=== PATIENT | male | born 1960 | race Caucasian/White ===

== ENCOUNTER 2017-06-12 10:45 | Emergency (ER) | payer SELFPAY ==
[2017-06-12 10:51] VITALS: BMI 28.1
[2017-06-12] MEDS ORDERED: NS 1000 ML 1,000 ML ONE (10:54)
[2017-06-12] MEDS ORDERED: NS 1000 ML 1,000 ML IV ONE (10:58)
[2017-06-12] MEDS ORDERED: ATIVAN INJ 2 MG VIAL IVP STA (10:58)
[2017-06-12] MEDS ORDERED: TORADOL 30 MG VIAL IVP STA (10:58)
[2017-06-12] MEDS ORDERED: ATIVAN INJ 2 MG VIAL ONE (10:59)
[2017-06-12] MEDS ORDERED: TORADOL 30 MG VIAL ONE (10:59)
--- NOTE | 2017-06-12 11:05 | DR.MBACK ---
HPI - Time Seen Time seen: 11:01 - PCP Primary Care Physician: NFD - Complaint Chief Complaint Doctors Comments: Patient is complaining of right lower back pain, hematuria and urinating blood for the past three weeks with the pain getting worst today about 4-5 hours ago. States he has had a problem with kidney stones but this is the worst one he has had in a while. He denies fever , chills, nausea, chest pain or SOB. States he has not local doctor. He denies any recent trauma. States the pain is worst when he moves. states he has not problems urinating just has been urinating blood. Chief Complaint:: PT IN THE FLOOR IN THE WAITING ROOM C/O KIDNEY STONE AND HAVING RIGHT BACK PAIN SINCE THIS AM AND PEEING BLOOD FOR S WEEK,,, PT HAS HX OF RENAL STONES . - Reviewed Nurses Notes Review: Yes - Source History Provided: Patient - Mode of Arrival Mode of Arrival: Wheelchair - Timing Onset of Chief Complaint: 06/12/17 - Duration Duration: Constant How lon Duration: Days - Location Back Pain Location: Right, BACK Radiation To: Right, Posterior, Lateral - Severity Severity: Severe - Quality Quality: Sharp, Tearing - Context Onset: Spontaneous Circumstance: Unknown History of: Urolithiasis - Modifying Factors Worsened By: Movement - Associated Signs and Symptoms Back Pain Symptoms: None Numbness: None Weakness: None PMH - PMH Past Medical History: Yes Past Medical History: Angina Past Surgical History: Yes Surgical History: Ortho Surgery, Tonsillectomy - Family History History of Family Medical Conditions: No - Social History Does patient currently use any type of tobacco product: Yes Have you used tobacco products in the last 12 months: Yes Type of Tobacco Use: Cigarettes Does any household member use tobacco: No Alcohol Use: None Do you use any recreational Drugs:: No Lives With: Family Lives Where: Home - infectious screening In the last 2 months have you had wt loss of >10#?: NO Have you had fever, night sweats or hemotysis?: No Have you traveled outside the country in the last 6 months?: No Isolation: Standard ROS - Review of Systems Constitutional: No Symptoms Reported. negative: See HPI, Chills, Diaphoresis, Fever, Malaise, Weakness, Irritable, Fatigue, Loss of Appetite, Other Eyes: No Symptoms Reported ENTM: No Symptoms Reported. negative: See HPI, Ear Pain, Ear Discharge, Pulling on Ears, Hearing Loss, Nose Pain, Nose Discharge, Epistaxis, Nose Congestion, Mouth Pain, Mouth Swelling, Loose Teeth, Drooling, Throat Pain, Throat Swelling, Ear Foreign Body Respiratoy: No Symptoms Reported Cardiovascular: No Symptoms Reported. negative: See HPI, Chest Pain, Edema, Palpitations, Syncope, Cyanosis, Skin Mottling, Other Gastrointestinal/Abdominal: No Symptoms Reported. negative: See HPI, Abdominal Pain, Constipation, Diarrhea, Nausea, Vomiting, Food Intolerance, Other Genitourinary: No Symptoms Reported, Hematuria, Pain Neurological: No Symptoms Reported. negative: See HPI, Anxiety, Depressed, Emotional Problems, Headache, Numbness, Paresthesia, Pre-existing Deficit, Seizure, Tingling, Tremors, Weakness, Dizziness, Problems Walking, Speech Problem, Other Musculoskeletal: No Symptoms Reported, Back Pain, Right Integumentary: No Symptoms Reported Hematologic/Lymphatic: No Symptoms Reported. negative: See HPI, Anemia, Blood Clots, Easy Bleeding, Easy Bruising, Swollen Glands, Lymphadenopathy, Other Endocrine: No Symptoms Reported Psychiatric: No Symptoms Reported PE - Vital Signs Vitals: Pulse Rate 69 Respiratory Rate 18 Blood Pressure [Right Arm] 178/98 Blood Pressure 177/81 O2 Sat by Pulse Oximetry 100 - General Limitations: No Limitations General Appearance: Alert, In Distress (severe) - Head Head Exam: Normal Inspection, Atraumatic, Normocephalic - Eyes Eye exam: Normal Appearance, PERRL, EOMI. negative: Scleral Icterus, Conjunctival Injection, Nystagmus, Miosis, Mydrasis, Periorbital Swelling, Periorbital Tenderness, Other - ENT ENT Exam: Normal Exam, Normal Oropharynx, Normal External Ear Exam, Mucous Membranes Moist, TM's Normal Bilaterally - Chest Chest Inspection: Normal Inspection, Symmetric Chest Wall Rise - Respiratory Respiratory Exam: Normal Lung Sounds Bilat Respiratory Exam: Bilateral Clear to Auscultation - Cardiovascular Cardiovascular Exam: Regular Rate, Normal Rhythm, Normal Heart Sounds - Abdominal Exam Abdominal Exam: Normal Inspection, Normal Bowel Sounds, Soft, Tenderness, Guarding (right CVA tenderness) Abdominal Tenderness: RUQ, RLQ, Severe - Rectal Rectal Exam: Deferred - Genitourinary Exam: Male: Deferred - Extremities Extremities Exam: Normal Inspection, Full ROM, Normal Capillary Refill. negative: Tenderness, Edema, Joint Swelling, Calf Tenderness, Other - Back Back Exam: Normal Inspection, Full ROM. negative: Tenderness, (R) CVA Tenderness, (L) CVA Tenderness, Muscle Spasm, Paraspinal Tenderness, Vertebral Tenderness, Rashes, (R) Sciatic Notch Tenderness, (L) Sciatic Notch Tendern, (R ) Straight Leg Raise, (L) Straight Leg Raise, Other - Neurological Neurological Exam: Alert, Oriented X3, CN II-XII Intact, Normal Gait, Reflexes Normal - Psychiatric Psychiatric Exam: Normal Affect, Normal Mood - Skin Skin Exam: Warm, Dry, Intact, Normal Color ROR - Labs Reviewed Laboratory Results Reviewed?: Yes (all labs and x-ray results reviewed and discussed with patient) Result Diagrams: 06/12/17 11:11 06/12/17 11:11 Laboratory: WBC 9.3 X10^3/uL (3.6-10.0) 06/12/17 11:11 RBC 4.91 X10^6/uL (4.7-6.0) 06/12/17 11:11 Hgb 13.9 g/dL (13.5-18.0) 06/12/17 11:11 Hct 42.3 % (42.0-54.0) 06/12/17 11:11 MCV 86.2 fL (80.0-100.0) 06/12/17 11:11 MCH 28.3 pg (27.0-34.0) 06/12/17 11:11 MCHC 32.8 g/dL (33.0-35.0) L 06/12/17 11:11 RDW 13.3 % (11.6-16.5) 06/12/17 11:11 Plt Count 220 X10^3/uL (150.0-450.0) 06/12/17 11:11 MPV 8.2 fL (7.4-11.0) 06/12/17 11:11 Neut % 64.4 % (42.0-75.0) 06/12/17 11:11 Lymph % 26.2 % (21.0-51.0) 06/12/17 11:11 [place] % 7.5 % (0.0-13.0) 06/12/17 11:11 Eos % 1.1 % (0.9-2.9) 06/12/17 11:11 Baso % 0.8 % (0.2-1.0) 06/12/17 11:11 Neut # 6.0 x10^3/uL (2.2-4.8) H 06/12/17 11:11 Lymph # 2.4 X10^3/uL (1.3-2.9) 06/12/17 11:11 [place] # 0.7 x10^3/uL (0.3-0.8) 06/12/17 11:11 Eos # 0.1 x10^3/uL (0.0-0.2) 06/12/17 11:11 Baso # 0.1 X10^3/uL (0.0-0.1) 06/12/17 11:11 Absolute Nucleated RBC 0.0 /100WBC 06/12/17 11:11 Sodium 139 mmol/L (136-145) 06/12/17 11:11 Corrected Sodium TNP 06/12/17 11:11 Potassium 4.1 mmol/L (3.5-5.1) 06/12/17 11:11 Chloride 105 mmol/L (98-107) 06/12/17 11:11 Carbon Dioxide 21.9 mmol/L (21-32) 06/12/17 11:11 BUN 12 mg/dL (7-18) 06/12/17 11:11 Creatinine 0.99 mg/dL (0.70-1.30) 06/12/17 11:11 Est GFR (MDRD) Af Amer > 60 (>60) 06/12/17 11:11 Est GFR (MDRD) Non-Af > 60 (>60) 06/12/17 11:11 Glucose 87 mg/dL (65-99) 06/12/17 11:11 Calcium 9.2 mg/dL (8.5-10.1) 06/12/17 11:11 Corrected Calcium TNP 06/12/17 11:11 Total Bilirubin 0.80 mg/dL (0.2-1.0) 06/12/17 11:11 AST 60 Units/L (15-37) H 06/12/17 11:11 ALT 88 Units/L (12-78) H 06/12/17 11:11 Alkaline Phosphatase 99 Units/L (46-116) 06/12/17 11:11 Total Protein 7.1 g/dL (6.4-8.2) 06/12/17 11:11 Albumin 3.7 g/dL (3.4-5.0) 06/12/17 11:11 Globulin 3.4 g/dL (2.5-4.5) 06/12/17 11:11 Albumin/Globulin Ratio 1.1 Ratio (1.1-2.1) 06/12/17 11:11 Amylase 30 Units/L (25-115) 06/12/17 11:11 Urine Opiates Screen Negative (NEG=<300) 06/12/17 12:24 Urine Methadone Screen Negative (NEG=<300) 06/12/17 12:24 Ur Barbiturates Screen Negative (NEG=<200) 06/12/17 12:24 Ur Phencyclidine Scrn Negative (NEG=<25) 06/12/17 12:24 Ur Amphetamines Screen Positive (NEG=<1000) 06/12/17 12:24 U Benzodiazepines Scrn Negative (NEG=<200) 06/12/17 12:24 Urine Cocaine Screen Negative (NEG=<300) 06/12/17 12:24 U Marijuana (THC) Screen Negative (NEG=<50) 06/12/17 12:24 - XRAY XRAY Interpreted by: Radiologist (CT abdomen and pelvis: Riht-sided hydronephrosis due to 1.2cm stone lodged at UPJ. Non specific urinary bladder wall thickening) - Diagnosis Discharge Problem: Renal calculus, right, UTI (urinary tract infection) Hydronephrosis Qualifiers: Hydronephrosis type: unspecified Qualified Code(s): N13.30 - Unspecified hydronephrosis - Discharge Plan Disposition: 01 HOME, SELF-CARE Condition: Stable Prescriptions: Ciprofloxacin HCl [CIPRO 500 MG TAB *] 500 mg PO Q12H #20 tab Ketorolac Tromethamine [Toradol Tab] 10 mg PO Q8H PRN #12 tab PRN Reason: Pain Tamsulosin HCl [Flomax] 0.4 mg PO DAILY #10 cap - Follow ups/Referrals Follow ups/Referrals: NFD,None [Primary Care Provider] - 3 days FREDY TORRES [STAFF PHYSICIAN] - 3 days - Instructions Instructions: Renal Colic, [id number], Kidney Stones, [id number], Abdominal Pain, Adult, [id number], Urinary Tract Infection, Adult
[2017-06-12 11:17] LABS: BASOPHILS # (AUTO) 0.1 X10^3/uL (0.0-0.1); BASOPHILS % (AUTO) 0.8 % (0.2-1.0); EOSINOPHILS # (AUTO) 0.1 x10^3/uL (0.0-0.2); EOSINOPHILS % (AUTO) 1.1 % (0.9-2.9); HEMATOCRIT 42.3 % (42.0-54.0); HEMOGLOBIN 13.9 g/dL (13.5-18.0); LYMPHOCYTES # (AUTO) 2.4 X10^3/uL (1.3-2.9); LYMPHOCYTES % (AUTO) 26.2 % (21.0-51.0); MEAN CORPUSCULAR HEMOGLOBIN 28.3 pg (27.0-34.0); MEAN CORPUSCULAR HGB CONC 32.8 g/dL (33.0-35.0); MEAN CORPUSCULAR VOLUME 86.2 fL (80.0-100.0); MEAN PLATELET VOLUME 8.2 fL (7.4-11.0); MONOCYTES # (AUTO) 0.7 x10^3/uL (0.3-0.8); MONOCYTES % (AUTO) 7.5 % (0.0-13.0); NEUTROPHILS % (AUTO) 64.4 % (42.0-75.0); PLATELET COUNT 220 X10^3/uL (150.0-450.0); RED BLOOD COUNT 4.91 X10^6/uL (4.7-6.0); RED CELL DISTRIBUTION WIDTH 13.3 % (11.6-16.5); WHITE BLOOD COUNT 9.3 X10^3/uL (3.6-10.0)
--- NOTE | 2017-06-12 12:11 | CT ---
HISTORY: Right flank pain, hematuria Study: CT abdomen and pelvis without contrast Comparison: None Technique: Multiple axial images of the abdomen and pelvis were obtained without IV contrast. Dose reduction t echniques including Automated Exposure Control (AEC) and adjustment of mA and kV were utilized. Findings: Please note evaluation is limited without use of IV contrast. The visualized lung bases are clear. There is right-sided hydronephrosis and perinephric stranding d ue to a 1.2 cm stone lodged at the ureteropelvic junction in the proximal collecting system. There ar e small nonobstructing right renal calculi noted. The left kidney and ureter are normal. The gallblad gutierrez is normal. The unenhanced spleen, pancreas, liver, and adrenal glands are unremarkable. No free intraperitoneal air. No evidence of intestinal obstruction or inflammation. The appendix is n ormal. No free fluid identified. There is mild thickening of the urinary bladder wall without focal l esion identified. The soft tissues and osseous structures are unremarkable. The vascular structures are unremarkable. N o pathologically enlarged lymph nodes are identified. IMPRESSION: 1. Right-sided hydronephrosis due to a 1.2 cm stone lodged at the UPJ. 2. Nonspecific urinary bladder wall thickening. Reported By:
[2017-06-12 12:19] LABS: ALANINE AMINOTRANSFERASE 88 Units/L (12-78); ALBUMIN 3.7 g/dL (3.4-5.0); ALKALINE PHOSPHATASE 99 Units/L (46-116); AMYLASE 30 Units/L (25-115); ASPARTATE AMINO TRANSFERASE 60 Units/L (15-37); BLOOD UREA NITROGEN 12 mg/dL (7-18); CALCIUM 9.2 mg/dL (8.5-10.1); CARBON DIOXIDE 21.9 mmol/L (21-32); CHLORIDE 105 mmol/L (98-107); CREATININE 0.99 mg/dL (0.70-1.30); SODIUM 139 mmol/L (136-145); TOTAL PROTEIN 7.1 g/dL (6.4-8.2); eGFR BLACK RACES > 60 (>60); eGFR NON BLACK RACES > 60 (>60)
[2017-06-12 13:03] LABS: COLOR,URINE RED (YELLOW)
[2017-06-12 13:04] LABS: APPEARANCE,URINE CLOUDY (CLEAR); GLUCOSE, URINE NEGATIVE (NEGATIVE); PH,URINE 8.5 (5.0 - 8.0); PROTEIN,URINE TRACE (NEGATIVE)
[2017-06-12 13:05] LABS: BILIRUBIN,URINE NEGATIVE (NEGATIVE); BLOOD/HEMOGLOBIN,URINE 5+ (NEGATIVE); KETONES,URINE NEGATIVE (NEGATIVE); LEUKOCYTE ESTERASE ,URINE NEGATIVE (NEGATIVE); NITRITES,URINE NEGATIVE (NEGATIVE); UROBILINOGEN,URINE NORMAL (NORMAL)
[2017-06-12 13:14] LABS: BACTERIA,URINE TRACE /HPF (NEGATIVE); RBC,URINE TNTC /HPF (NEGATIVE); SQUAMOUS EPITHELIAL CELL,UR FEW /HPF (NEGATIVE)
[2017-06-12 13:15] LABS: AMORPHOUS SEDIMENT,UR 1+ /HPF (NEGATIVE)
[2017-06-12 13:18] VITALS: BP 144/78
== END 2017-06-12 13:18 | disposition home or self-care (01) ==
LOC: ER 10:48
DX: N20.0 Calculus of kidney (principal); N39.0 Urinary tract infection, site not specified; N13.30 Unspecified hydronephrosis
CPT/HCPCS: 36415; 74176; 80053; 80307; 81001; 82150; 85025; 96365; 96374; 96375; 99282; 99283; A4222; G0434; J1885; J2060

== ENCOUNTER 2022-09-24 09:26 | Inpatient (IN) ==
--- NOTE | 2022-09-24 09:34 | DR.CP ---
HPI Time Seen Time Seen by Provider: 09/24/22 09:31 Complaint Chief Complaint Doctor Comments: 62 y/o male brought in via EMS for evaluation. Has been having intermittent chest pain, and worsening dysnea over the past few days. Pain located anterior chest region, sharp, off/on. Radiates to neck at ti mes. Nothing makes it better, nothing makes it worse. Having shortness of breath, denies cough. Dyspnea worse with laying down. Denies fever, cough, nausea, vomiting. Has recently gained several pounds suddenly. + swelling of his legs. Pt was seen here last month, transferred to another facility for non STEMI. Underwent a cath. No stents placed, but they wanted pt to start wearing a cardiac vest. Reviewed Nurses Notes Review: Yes Source History Provided: Patient Mode of Arrival Mode of Arrival: EMS PMH PMH Past Medical History: Angina Past Surgical History: No Surgical History: Ortho Surgery and Tonsillectomy Family History Family Medical History: [place] Social History Does patient currently use any type of tobacco product: Yes Type of Tobacco Use: Cigarettes Do you use any recreational Drugs:: No ROS Review of Systems Constitutional: No Symptoms Reported Eyes: No Symptoms Reported ENTM: No Symptoms Reported Respiratoy: Short of Breath Cardiovascular: Chest Pain Gastrointestinal/Abdominal: No Symptoms Reported Genitourinary: No Symptoms Reported Neurological: No Symptoms Reported Musculoskeletal: No Symptoms Reported Integumentary: No Symptoms Reported Psychiatric: No Symptoms Reported All Other Systems: Reviewed and Negative PE Vitals Vitals: Pulse Rate 84 Respiratory Rate 22 Blood Pressure [Right Arm] 130/86 Blood Pressure 143/80 O2 Sat by Pulse Oximetry 100 General General Appearance: Alert and In No Apparent Distress Eyes Eye exam: PERRL and EOMI ENT ENT Exam: Normal Exam and Mucous Membranes Moist Chest Chest Inspection: Normal Inspection Respiratory Respiratory Exam: Normal Lung Sounds Bilat; negative Accessory Muscle Use or Respiratory Distress Cardiovascular Cardiovascular Exam: Regular Rate, Normal Rhythm and Normal Heart Sounds Abdominal Exam Abdominal Exam: Normal Bowel Sounds and Soft; negative Tenderness Extremities Extremities Exam: Edema (2-3+ pitting edema of bilateral lower exts.) Back Back Exam: Normal Inspection and Full ROM; negative Tenderness Neurologic Neurological Exam: Alert, Oriented X3 and CN II-XII Intact; negative Motor Sensory Deficit Skin Skin Exam: Warm and Dry COURSE Treatment Treatment: 62 y/o male with worsening dyspnea over the past few days, intermittent chest pain. Pain better at present. W/u initiated. EKG without ischemic changes. CXR - c/w degree of CHF, with cardiomegaly. Pt given IV lasix. 1050 - Pt withBNP of 3,500. Troponin elevated to 115. Developing chest tightness. Will give SL NTG, IV Morphine. Informed pt of CHF, abnormal troponin. Deserves transfer to facility with cardiac services, ran pt by the covering hospitalist, Dr Leggett, and he agrees. Pt does not want to go back to [facility]. 1129 - pt declines transfer to facility with cardiology services. 2 hr repeat troponin done, dropped from 115, to 93. Abnormal troponin probably related to CHF. Re-discussed with Dr Leggett, he will admit the pt for CHF. Pt understands no cardiology available here. If his condition worsens, transfer will be recommended. ROR Labs Reviewed Result Diagrams: 09/24/22 10:07 09/24/22 10:07 Laboratory: WBC 6.8 X10^3/uL (3.6-10.0) 09/24/22 10:07 RBC 4.80 X10^6/uL (4.7-6.0) 09/24/22 10:07 Hgb 13.8 g/dL (13.5-18.0) 09/24/22 10:07 Hct 42.6 % (42.0-54.0) 09/24/22 10:07 MCV 88.7 fL (80.0-100.0) 09/24/22 10:07 MCH 28.8 pg (27.0-34.0) 09/24/22 10:07 MCHC 32.4 g/dL (33.0-35.0) L 09/24/22 10:07 RDW 14.6 % (11.6-16.5) 09/24/22 10:07 Plt Count 137 X10^3/uL (150.0-450.0) L 09/24/22 10:07 MPV 9.5 fL (7.4-11.0) 09/24/22 10:07 Neut % (Auto) 63.8 % (42.0-75.0) 09/24/22 10:07 Lymph % (Auto) 26.2 % (21.0-51.0) 09/24/22 10:07 [place] % (Auto) 7.5 % (0.0-13.0) 09/24/22 10:07 Eos % (Auto) 1.8 % (0.9-2.9) 09/24/22 10:07 Baso % (Auto) 0.7 % (0.2-1.0) 09/24/22 10:07 Neut # (Auto) 4.3 x10^3/uL (2.2-4.8) 09/24/22 10:07 Lymph # (Auto) 1.8 X10^3/uL (1.3-2.9) 09/24/22 10:07 [place] # (Auto) 0.5 x10^3/uL (0.3-0.8) 09/24/22 10:07 Eos # (Auto) 0.1 x10^3/uL (0.0-0.2) 09/24/22 10:07 Baso # (Auto) 0.0 X10^3/uL (0.0-0.1) 09/24/22 10:07 Absolute Nucleated RBC 0.0 /100WBC 09/24/22 10:07 Sodium 143 mmol/L (136-145) 09/24/22 10:07 Corrected Sodium TNP 09/24/22 10:07 Potassium 4.4 mmol/L (3.5-5.1) 09/24/22 10:07 Chloride 105 mmol/L (98-107) 09/24/22 10:07 Carbon Dioxide 29.3 mmol/L (21-32) 09/24/22 10:07 BUN 20 mg/dL (7-18) H 09/24/22 10:07 Creatinine 1.29 mg/dL (0.70-1.30) 09/24/22 10:07 Est GFR (MDRD) Af Amer > 60 (>60) 09/24/22 10:07 Est GFR (MDRD) Non-Af > 60 (>60) 09/24/22 10:07 Glucose 90 mg/dL (65-99) 09/24/22 10:07 Calcium 8.8 mg/dL (8.5-10.1) 09/24/22 10:07 Corrected Calcium TNP 09/24/22 10:07 Total Bilirubin 0.90 mg/dL (0.2-1.0) 09/24/22 10:07 AST 60 Units/L (15-37) H 09/24/22 10:07 ALT 51 Units/L (12-78) 09/24/22 10:07 Alkaline Phosphatase 92 Units/L (46-116) 09/24/22 10:07 Troponin I High Sens 93.3 ng/L (4.0-60.0) H* 09/24/22 12:00 B-Natriuretic Peptide 3550 pg/mL (0-79) H* 09/24/22 10:07 Total Protein 7.6 g/dL (6.4-8.2) 09/24/22 10:07 Albumin 3.6 g/dL (3.4-5.0) 09/24/22 10:07 Globulin 4.0 g/dL (2.5-4.5) 09/24/22 10:07 Albumin/Globulin Ratio 0.9 Ratio (1.1-2.1) L 09/24/22 10:07 XRAY XRAY Interpreted by: Self X-ray Results: Cardiomegaly, increased interstitial markings, someblunting of the R CP angle, c/w CHF. EKG Rate: 93 [place]: Normal Rhythm: NSR and PVCs (unifocal, trigeminy) ST: Nonsp (no obvious ischemia, + baseline artifact of chest leads.) Opioid Opioid Risk Tool Age (Trey box if 16-45): No History of Preadolescent Sexual Abuse: No Total: 0 Total Score Risk Category: Low Risk Copyright: Rian GILMORE predicting aberrant behaviors Discharge Plan Diagnosis Discharge Problem: Acute exacerbation of CHF (congestive heart failure) Discharge Plan Patient Disposition: 09 ADMITTED INPATIENT Condition: Stable Orders to Discharge Patient Discharge Orders: Transfer (Routine); Ordered 09/24/22 Ordered By: Benson Quintanilla
[2022-09-24 09:41] VITALS: BMI 29.2
--- NOTE | 2022-09-24 09:42 | EKG ---
Test Reason : chest pain Blood Pressure : */* mmHG Vent. Rate : 93 BPM Atrial Rate : 93 BPM P-R Int : 172 ms QRS Dur : 100 ms QT Int : 330 ms P-R-T Axes : 74 40 190 degrees QTc Int : 410 ms Sinus rhythm with frequent premature ventricular complexes Possible Left atrial enlargement Low voltage QRS Septal infarct (cited on or before 15-AUG-2022) Abnormal ECG When compared with ECG of 15-AUG-2022 12:14, ST elevation now present in Anterior leads Nonspecific T wave abnormality now evident in Inferior leads QT has shortened Referred By: Confirmed By:
[2022-09-24] MEDS ORDERED: LASIX IVP ONE ×2 (09:54→09:57)
--- NOTE | 2022-09-24 09:54 | EKG ---
Test Reason : REPEAT EKG Blood Pressure : */* mmHG Vent. Rate : 92 BPM Atrial Rate : 92 BPM P-R Int : 172 ms QRS Dur : 98 ms QT Int : 396 ms P-R-T Axes : 66 33 -88 degrees QTc Int : 489 ms Sinus rhythm with frequent premature ventricular complexes Possible Left atrial enlargement Low voltage QRS Septal infarct (cited on or before 15-AUG-2022) Abnormal ECG When compared with ECG of 24-SEP-2022 09:40, (Unconfirmed) QT has lengthened Referred By: Confirmed By:
[2022-09-24 10:14] LABS: BASOPHILS % (AUTO) 0.7 % (0.2-1.0); EOSINOPHILS # (AUTO) 0.1 x10^3/uL (0.0-0.2); EOSINOPHILS % (AUTO) 1.8 % (0.9-2.9); HEMATOCRIT 42.6 % (42.0-54.0); HEMOGLOBIN 13.8 g/dL (13.5-18.0); LYMPHOCYTES # (AUTO) 1.8 X10^3/uL (1.3-2.9); LYMPHOCYTES % (AUTO) 26.2 % (21.0-51.0); MEAN CORPUSCULAR HEMOGLOBIN 28.8 pg (27.0-34.0); MEAN CORPUSCULAR HGB CONC 32.4 g/dL (33.0-35.0); MEAN CORPUSCULAR VOLUME 88.7 fL (80.0-100.0); MEAN PLATELET VOLUME 9.5 fL (7.4-11.0); MONOCYTES # (AUTO) 0.5 x10^3/uL (0.3-0.8); MONOCYTES % (AUTO) 7.5 % (0.0-13.0); NEUTROPHILS # (AUTO) 4.3 x10^3/uL (2.2-4.8); NEUTROPHILS % (AUTO) 63.8 % (42.0-75.0); RED CELL DISTRIBUTION WIDTH 14.6 % (11.6-16.5); WHITE BLOOD COUNT 6.8 X10^3/uL (3.6-10.0)
[2022-09-24 10:30] LABS: ALANINE AMINOTRANSFERASE 51 Units/L (12-78); ALBUMIN 3.6 g/dL (3.4-5.0); ALKALINE PHOSPHATASE 92 Units/L (46-116); ASPARTATE AMINO TRANSFERASE 60 Units/L (15-37); BLOOD UREA NITROGEN 20 mg/dL (7-18); CALCIUM 8.8 mg/dL (8.5-10.1); CARBON DIOXIDE 29.3 mmol/L (21-32); CHLORIDE 105 mmol/L (98-107); CREATININE 1.29 mg/dL (0.70-1.30); SODIUM 143 mmol/L (136-145); TOTAL PROTEIN 7.6 g/dL (6.4-8.2); eGFR NON BLACK RACES > 60 (>60)
[2022-09-24] MEDS ORDERED: MORPHINE SULFATE INJ 4 MG IVP ONE ×2 (10:50→11:18)
[2022-09-24] MEDS ORDERED: NITROSTAT SL ONE (10:51)
[2022-09-24] MEDS ORDERED: LASIX IVP SCH (17:00)
[2022-09-25 04:49] LABS: BASOPHILS % (AUTO) 0.7 % (0.2-1.0); EOSINOPHILS # (AUTO) 0.2 x10^3/uL (0.0-0.2); EOSINOPHILS % (AUTO) 2.8 % (0.9-2.9); HEMATOCRIT 36.6 % (42.0-54.0); LYMPHOCYTES # (AUTO) 2.5 X10^3/uL (1.3-2.9); MEAN CORPUSCULAR HEMOGLOBIN 28.7 pg (27.0-34.0); MEAN CORPUSCULAR HGB CONC 32.8 g/dL (33.0-35.0); MEAN CORPUSCULAR VOLUME 87.6 fL (80.0-100.0); MONOCYTES # (AUTO) 0.6 x10^3/uL (0.3-0.8); MONOCYTES % (AUTO) 9.7 % (0.0-13.0); NEUTROPHILS # (AUTO) 3.2 x10^3/uL (2.2-4.8); NEUTROPHILS % (AUTO) 48.8 % (42.0-75.0); RED BLOOD COUNT 4.18 X10^6/uL (4.7-6.0); RED CELL DISTRIBUTION WIDTH 14.4 % (11.6-16.5); WHITE BLOOD COUNT 6.6 X10^3/uL (3.6-10.0)
[2022-09-25 04:57] LABS: ALANINE AMINOTRANSFERASE 43 Units/L (12-78); ALBUMIN 2.9 g/dL (3.4-5.0); ALKALINE PHOSPHATASE 73 Units/L (46-116); ASPARTATE AMINO TRANSFERASE 50 Units/L (15-37); BLOOD UREA NITROGEN 25 mg/dL (7-18); CALCIUM 8.2 mg/dL (8.5-10.1); CARBON DIOXIDE 31.9 mmol/L (21-32); CHLORIDE 104 mmol/L (98-107); COR CA(FOR HYPOALB) 9.1 mg/dL (8.5-10.1); CREATININE 1.51 mg/dL (0.70-1.30); SODIUM 143 mmol/L (136-145); TOTAL PROTEIN 5.9 g/dL (6.4-8.2); eGFR NON BLACK RACES 50 (>60)
[2022-09-25] MEDS ORDERED: COREG TAB 12.5 MG PO SCH (09:00)
[2022-09-25] MEDS ORDERED: LASIX PO SCH (09:00)
[2022-09-25] MEDS ORDERED: DIOVAN TAB 80 MG PO SCH (09:00)
[2022-09-25 15:18] VITALS: BP 146/71
== END 2022-09-25 16:07 | disposition home or self-care (01) | DRG 316 ==
LOC: ER 09:26 → ICU 13:05
PROVIDERS: ADMIT Obstetrics & Gynecology Obstetrics; ATTEND Obstetrics & Gynecology Obstetrics
DX: I42.0 Dilated cardiomyopathy; Z66 Do not resuscitate; R77.8 Other specified abnormalities of plasma proteins; R07.89 Other chest pain; I50.9 Heart failure, unspecified

== ENCOUNTER 2023-09-01 04:19 | Observation (INO) ==
--- NOTE | 2023-09-01 04:33 | EKG ---
Test Reason : SHORTNESS OF BREATH Blood Pressure : */* mmHG Vent. Rate : 83 BPM Atrial Rate : 83 BPM P-R Int : 162 ms QRS Dur : 106 ms QT Int : 406 ms P-R-T Axes : 80 43 102 degrees QTc Int : 477 ms Normal sinus rhythm Biatrial enlargement Left ventricular hypertrophy with repolarization abnormality ( Sokolow-Castillo , Patterson product ) Cannot rule out Septal infarct (cited on or before 15-AUG-2022) Abnormal ECG When compared with ECG of 24-SEP-2022 09:52, premature ventricular complexes are no longer present T wave inversion less evident in Inferior leads Confirmed by Rome Tristan MD ([id number]) on 09/01/2023 6:07:08 AM Referred By: Confirmed By: Rome Tristan MD
[2023-09-01 04:39] VITALS: BMI 26.6
[2023-09-01 04:42] LABS: HEMATOCRIT 44.7 % (42.0-54.0); HEMOGLOBIN 14.4 g/dL (13.5-18.0); MEAN PLATELET VOLUME 9.4 fL (7.4-11.0)
[2023-09-01 04:45] LABS: BASOPHILS % (AUTO) 0.5 % (0.2-1.0); EOSINOPHILS # (AUTO) 0.2 x10^3/uL (0.0-0.2); EOSINOPHILS % (AUTO) 2.4 % (0.9-2.9); LYMPHOCYTES # (AUTO) 1.8 X10^3/uL (1.3-2.9); LYMPHOCYTES % (AUTO) 21.6 % (21.0-51.0); MEAN CORPUSCULAR HEMOGLOBIN 28.6 pg (27.0-34.0); MEAN CORPUSCULAR HGB CONC 32.2 g/dL (33.0-35.0); MEAN CORPUSCULAR VOLUME 88.9 fL (80.0-100.0); MONOCYTES # (AUTO) 1.1 x10^3/uL (0.3-0.8); MONOCYTES % (AUTO) 12.7 % (0.0-13.0); NEUTROPHILS # (AUTO) 5.2 x10^3/uL (2.2-4.8); NEUTROPHILS % (AUTO) 62.8 % (42.0-75.0); PLATELET COUNT 149 X10^3/uL (150.0-450.0); RED BLOOD COUNT 5.03 X10^6/uL (4.7-6.0); RED CELL DISTRIBUTION WIDTH 13.5 % (11.6-16.5); WHITE BLOOD COUNT 8.3 X10^3/uL (3.6-10.0)
[2023-09-01 04:52] LABS: ABG ALLEN TEST POS; ABG BASE EXCESS 3.3 mmol/L (-2.0-2.0); ABG HCO3 27.8 mmol/L (22-26)
[2023-09-01 05:06] LABS: ALANINE AMINOTRANSFERASE 41 Units/L (12-78); ALBUMIN 2.8 g/dL (3.4-5.0); ALKALINE PHOSPHATASE 103 Units/L (46-116); ASPARTATE AMINO TRANSFERASE 50 Units/L (15-37); BLOOD UREA NITROGEN 17 mg/dL (7-18); CALCIUM 8.3 mg/dL (8.5-10.1); CARBON DIOXIDE 29.8 mmol/L (21-32); CHLORIDE 105 mmol/L (98-107); COR CA(FOR HYPOALB) 9.3 mg/dL (8.5-10.1); CREATINE KINASE 106 Units/L (39-308); CREATININE 1.15 mg/dL (0.70-1.30); GLUCOSE 97 mg/dL (65-99); POTASSIUM 4.1 mmol/L (3.5-5.1); SODIUM 140 mmol/L (136-145); TOTAL PROTEIN 7.1 g/dL (6.4-8.2); eGFR NON BLACK RACES > 60 (>60)
--- NOTE | 2023-09-01 05:09 | DR.SOBA ---
HPI Time Seen Time Seen by Provider: 09/01/23 05:09 Primary Care Physician Primary Care Physician: MORRIS HPI Comment HPI Comment: 63 y/o with ef 23% [place] [facility] [place] to evaluate cp presumably d/t cocaine; developed sob this morning which has worsened leading to presentation; still very sob and uncomfortable; no cough, fever or chills; no cp currently. Complaints Chief Complaint:: PATIENT BROUGHT IN ER VIA WHEELCHAIR WITH COMPLAINTS OF SHORTNESS OF BREATH. PATIENT STATES HE WAS DISCHARGED FROM [facility] LAST NIGHT AND HASNT BEEN ABLE TO CATCH HIS BREATH SINCE. PT NOTED TO BE TACHYPIC DURING TRIAGE. COVID-19 Coronavirus risk:travel/contact w/high risk person: No Has patient experienced Coronavirus symptoms: No Source History Provided: Patient Mode of Arrival Mode of Arrival: Wheelchair Timing Onset of Chief Complaint: 08/31/23 PMH PMH Past Medical History: Yes Past Medical History: Angina, CHF, Hypertension, Kidney Stones and ME Past Medical History Comment: ME X4, TIA Past Surgical History: Yes Surgical History: Angioplasty/Stents, Ortho Surgery and Tonsillectomy Family History History of Family Medical Conditions: Yes Family Medical History: ME Social History Does patient currently use any type of tobacco product: Yes Have you used tobacco products in the last 12 months: Yes Type of Tobacco Use: Cigarettes Does any household member use tobacco: Yes Alcohol Use: None and DAILY Do you use any recreational Drugs:: Yes (METH, COCAINE, MARAJUANA) Lives With: Alone and Mom Travel Risk Coronavirus risk:travel/contact w/high risk person: No Has patient experienced Coronavirus symptoms: No Infectious screening Have you traveled outside the country in the last 6 months?: No Isolation: Standard ROS Review of Systems Constitutional: No Symptoms Reported Eyes: No Symptoms Reported ENTM: No Symptoms Reported Respiratoy: See HPI Cardiovascular: No Symptoms Reported Gastrointestinal/Abdominal: No Symptoms Reported Genitourinary: No Symptoms Reported Neurological: No Symptoms Reported Musculoskeletal: No Symptoms Reported Integumentary: No Symptoms Reported Hematologic/Lymphatic: No Symptoms Reported Endocrine: No Symptoms Reported Psychiatric: No Symptoms Reported PE Vital Signs Vitals: Vital Signs Temperature 98.3 F Pulse Rate 73 Pulse Rate 74 Pulse Rate 79 Pulse Rate 80 Pulse Rate 80 Pulse Rate 77 Pulse Rate 79 Pulse Rate 76 Pulse Rate 73 Pulse Rate 80 Pulse Rate 84 Pulse Rate 80 Pulse Rate 79 Pulse Rate 83 Pulse Rate 89 Respiratory Rate 28 Respiratory Rate 30 Blood Pressure 124/78 Blood Pressure 136/79 Blood Pressure 139/94 Blood Pressure 134/94 Blood Pressure 140/91 Blood Pressure 151/98 Blood Pressure 139/92 Blood Pressure 136/94 O2 Sat by Pulse Oximetry 98 O2 Sat by Pulse Oximetry 96 O2 Sat by Pulse Oximetry 96 O2 Sat by Pulse Oximetry 97 O2 Sat by Pulse Oximetry 96 O2 Sat by Pulse Oximetry 96 O2 Sat by Pulse Oximetry 96 O2 Sat by Pulse Oximetry 95 O2 Sat by Pulse Oximetry 97 O2 Sat by Pulse Oximetry 97 O2 Sat by Pulse Oximetry 97 O2 Sat by Pulse Oximetry 96 O2 Sat by Pulse Oximetry 97 O2 Sat by Pulse Oximetry 98 General Limitations: No Limitations General Appearance: Alert and In No Apparent Distress Head Head Exam: Normal Inspection Eyes Eye exam: Normal Appearance ENT ENT Exam: Normal Exam Neck Neck Exam: Normal Inspection Chest Chest Inspection: Normal Inspection Respiratory Respiratory Exam: Normal Lung Sounds Bilat and Prolonged Expiratory Phase (tachypnea) Respiratory Exam: Bilateral: Clear to Auscultation Cardiovascular Cardiovascular Exam: Regular Rate and Normal Rhythm Abdominal Exam Abdominal Exam: Normal Inspection, Normal Bowel Sounds and Soft Extremities Extremities Exam: Normal Inspection Back Back Exam: Normal Inspection Neurologic Neurological Exam: Alert and Oriented X3 Psychiatric Psychiatric Exam: Anxious Skin Skin Exam: Warm, Dry, Intact and Normal Color COURSE Treatment Treatment: 63 y/o with ef 23% released [place] [facility] [place] stay to evaluate cp presumably d/t cocaine; developed sob this morning which has worsened; abg w/mild hypoxia of 77% and cta with diffuse peribronchial thickening consistent with bronchitis which could be acute, chronic, or both; still feeling sob and oxygen added with repeat abg pending; both rocephin and solu-medrol started. Consultation Call Returned: 07:46 (d/w Dr Leggett who accepts admission) ROR Labs Reviewed Laboratory Results Reviewed?: Yes 09/01/23 04:30 09/01/23 04:30 Laboratory: WBC 8.3 X10^3/uL (3.6-10.0) 09/01/23 04:30 RBC 5.03 X10^6/uL (4.7-6.0) 09/01/23 04:30 Hgb 14.4 g/dL (13.5-18.0) 09/01/23 04:30 Hct 44.7 % (42.0-54.0) 09/01/23 04:30 MCV 88.9 fL (80.0-100.0) 09/01/23 04:30 MCH 28.6 pg (27.0-34.0) 09/01/23 04:30 MCHC 32.2 g/dL (33.0-35.0) L 09/01/23 04:30 RDW 13.5 % (11.6-16.5) 09/01/23 04:30 Plt Count 149 X10^3/uL (150.0-450.0) L 09/01/23 04:30 MPV 9.4 fL (7.4-11.0) 09/01/23 04:30 Neut % (Auto) 62.8 % (42.0-75.0) 09/01/23 04:30 Lymph % (Auto) 21.6 % (21.0-51.0) 09/01/23 04:30 [place] % (Auto) 12.7 % (0.0-13.0) 09/01/23 04:30 Eos % (Auto) 2.4 % (0.9-2.9) 09/01/23 04:30 Baso % (Auto) 0.5 % (0.2-1.0) 09/01/23 04:30 Neut # (Auto) 5.2 x10^3/uL (2.2-4.8) H 09/01/23 04:30 Lymph # (Auto) 1.8 X10^3/uL (1.3-2.9) 09/01/23 04:30 [place] # (Auto) 1.1 x10^3/uL (0.3-0.8) H 09/01/23 04:30 Eos # (Auto) 0.2 x10^3/uL (0.0-0.2) 09/01/23 04:30 Baso # (Auto) 0.0 X10^3/uL (0.0-0.1) 09/01/23 04:30 Absolute Nucleated RBC 0.0 /100WBC 09/01/23 04:30 D-Dimer 0.53 ug/ml (0.0-0.57) 09/01/23 04:30 Sample Site Rra 09/01/23 07:30 ABG pH 7.480 (7.35-7.45) H 09/01/23 07:30 ABG pCO2 40.0 mmHg (35.0-45.0) 09/01/23 07:30 ABG pO2 84.0 mmHg (80.0-100.0) 09/01/23 07:30 ABG HCO3 29.8 mmol/L (22-26) H 09/01/23 07:30 ABG O2 Saturation 97.0 % (90-100) 09/01/23 07:30 ABG Base Excess 5.8 mmol/L (-2.0-2.0) H 09/01/23 07:30 Link Test Pos 09/01/23 07:30 A-a Gradient 66.0 mmHg 09/01/23 07:30 FiO2 28.0 09/01/23 07:30 Blood Gas Comments Pt coleman well eb 09/01/23 07:30 Sodium 140 mmol/L (136-145) 09/01/23 04:30 Corrected Sodium TNP 09/01/23 04:30 Potassium 4.1 mmol/L (3.5-5.1) 09/01/23 04:30 Chloride 105 mmol/L (98-107) 09/01/23 04:30 Carbon Dioxide 29.8 mmol/L (21-32) 09/01/23 04:30 BUN 17 mg/dL (7-18) 09/01/23 04:30 Creatinine 1.15 mg/dL (0.70-1.30) 09/01/23 04:30 Est GFR (MDRD) Af Amer > 60 (>60) 09/01/23 04:30 Est GFR (MDRD) Non-Af > 60 (>60) 09/01/23 04:30 Glucose 97 mg/dL (65-99) 09/01/23 04:30 Calcium 8.3 mg/dL (8.5-10.1) L 09/01/23 04:30 Corrected Calcium 9.3 mg/dL (8.5-10.1) 09/01/23 04:30 Total Bilirubin 0.60 mg/dL (0.2-1.0) 09/01/23 04:30 AST 50 Units/L (15-37) H 09/01/23 04:30 ALT 41 Units/L (12-78) 09/01/23 04:30 Alkaline Phosphatase 103 Units/L (46-116) 09/01/23 04:30 Creatine Kinase 106 Units/L (39-308) 09/01/23 04:30 Troponin I High Sens 72.7 ng/L (4.0-60.0) H* 09/01/23 06:30 B-Natriuretic Peptide 1480 pg/mL (0-79) H 09/01/23 04:30 Total Protein 7.1 g/dL (6.4-8.2) 09/01/23 04:30 Albumin 2.8 g/dL (3.4-5.0) L 09/01/23 04:30 Globulin 4.3 g/dL (2.5-4.5) 09/01/23 04:30 Albumin/Globulin Ratio 0.7 Ratio (1.1-2.1) L 09/01/23 04:30 Specimen Type Clean catch urine 09/01/23 05:38 Urine Color Yellow (YELLOW) 09/01/23 05:38 Urine Appearance Hazy (CLEAR) 09/01/23 05:38 Urine pH 6.0 (5.0 - 8.0) 09/01/23 05:38 Ur Specific [place] 1.010 (1.000-1.030) 09/01/23 05:38 Urine Protein 2+ (NEGATIVE) 09/01/23 05:38 Urine Glucose (UA) Negative (NEGATIVE) 09/01/23 05:38 Urine Ketones Negative (NEGATIVE) 09/01/23 05:38 Urine Blood 3+ (NEGATIVE) 09/01/23 05:38 Urine Nitrite Negative (NEGATIVE) 09/01/23 05:38 Urine Bilirubin Negative (NEGATIVE) 09/01/23 05:38 Urine Urobilinogen Normal (NORMAL) 09/01/23 05:38 Ur Leukocyte Esterase 3+ (NEGATIVE) 09/01/23 05:38 Urine RBC 5-10 /HPF (0-3) A 09/01/23 05:38 Urine WBC 30-50 /HPF (0-5) A 09/01/23 05:38 Ur Squamous Epith Cells Few /HPF (NEGATIVE) 09/01/23 05:38 Urine Bacteria Trace /HPF (NEGATIVE) 09/01/23 05:38 Hyaline Casts Few /LPF (NEGATIVE) 09/01/23 05:38 Urine Mucus Few /HPF (NEGATIVE) 09/01/23 05:38 Ur Culture Indicated? Yes/culture set up 09/01/23 05:38 Urine Opiates Screen Negative (NEG=<300) 09/01/23 05:38 Urine Methadone Screen Negative (NEG=<300) 09/01/23 05:38 Ur Barbiturates Screen Negative (NEG=<200) 09/01/23 05:38 Ur Phencyclidine Scrn Negative (NEG=<25) 09/01/23 05:38 Ur Amphetamines Screen Negative (NEG=<1000) 09/01/23 05:38 U Benzodiazepines Scrn Negative (NEG=<200) 09/01/23 05:38 Urine Cocaine Screen Negative (NEG=<300) 09/01/23 05:38 U Marijuana (THC) Screen Negative (NEG=<50) 09/01/23 05:38 SARS-CoV-2 (PCR) Negative (NEGATIVE) 09/01/23 04:30 Influenza Type A (PCR) Negative (NEGATIVE) 09/01/23 04:30 Influenza Type B (PCR) Negative (NEGATIVE) 09/01/23 04:30 RSV (PCR) Negative (NEGATIVE) 09/01/23 04:30 XRAY XRAY Interpreted by: Radiologist X-ray Results: cxr: No acute cardiopulmonary disease. ct chest: No evidence for acute pulmonary thromboembolic disease. No acute pulmonary infiltrates. Diffuse peribronchial thickening consistent with bronchitis which could be acute, chronic, or both. Stable mild dilatation of the ascending aorta. Punctate nonobstructing left upper pole renal calculi incidentally noted. [place] [facility] [place] Opioid Opioid Risk Tool Age (Trey box if 16-45): No History of Preadolescent Sexual Abuse: No Total: 0 Total Score Risk Category: Low Risk Copyright: Rian GILMORE predicting aberrant behaviors Discharge Plan Diagnosis Discharge Problem: COPD exacerbation, Hypoxia, Cardiomyopathy, nonischemic UTI (urinary tract infection) Qualifiers: Urinary tract infection type: acute cystitis Hematuria presence: without hematuria Qualified Code(s): N30.00 - Acute cystitis without hematuria CHF (congestive heart failure) Qualifiers: Heart failure type: systolic Heart failure chronicity: acute on chronic Qualified Code(s): I50.23 - Acute on chronic systolic (congestive) heart failure Discharge Plan Patient Disposition: ADMITTED INPATIENT Condition: Stable
[2023-09-01] MEDS ORDERED: LASIX IVP ONE (05:14)
[2023-09-01] MEDS: LASIX IVP ONE (05:17)
--- NOTE | 2023-09-01 05:20 | RAD ---
EXAM: CHEST, 1 VIEW HISTORY: PATIENT BROUGHT IN ER VIA WHEELCHAIR WITH COMPLAINTS OF SHORTNESS OF BREATH. ; ANGINA, CHF, HTN, PR X 4 TIA SX: ANGIO/STENTS, ORTHO, TONSILS COMPARISON: 09/27/2019 FINDINGS: The cardiomediastinal silhouette is stable. Chronic interstitial changes in the lungs. No acute airspace disease. No pneumothorax or effusion. No acute osseous abnormality. IMPRESSION: No acute cardiopulmonary disease. THIS IS AN ELECTRONICALLY VERIFIED FINAL REPORT 09/01/2023 5:17 AM - Electronically signed by Magdy Amanda MD
[2023-09-01 05:57] LABS: APPEARANCE,URINE HAZY (CLEAR); BILIRUBIN,URINE NEGATIVE (NEGATIVE); BLOOD/HEMOGLOBIN,URINE 3+ (NEGATIVE); COLOR,URINE YELLOW (YELLOW); GLUCOSE, URINE NEGATIVE (NEGATIVE); KETONES,URINE NEGATIVE (NEGATIVE); LEUKOCYTE ESTERASE ,URINE 3+ (NEGATIVE); NITRITES,URINE NEGATIVE (NEGATIVE); PROTEIN,URINE 2+ (NEGATIVE); UROBILINOGEN,URINE NORMAL (NORMAL)
[2023-09-01 05:58] LABS: BACTERIA,URINE TRACE /HPF (NEGATIVE); HYALINE CASTS, URINE FEW /LPF (NEGATIVE); SQUAMOUS EPITHELIAL CELL,UR FEW /HPF (NEGATIVE)
[2023-09-01] MEDS: OMNIPAQUE 350 mg/mL 100 mL BTL 100 ML ONE (06:07)
[2023-09-01] MEDS: NS 100 ML IV 100 ML ONE (06:07)
[2023-09-01] MEDS ORDERED: ROCEPHIN VIAL 1 GRAM ONE (06:49)
[2023-09-01] MEDS: ROCEPHIN VIAL 1 GRAM IVP ONE (06:55)
[2023-09-01] MEDS: ROCEPHIN VIAL 1 GRAM 1 G in NS 100 ML IV 100 ML IV SCH (06:57)
--- NOTE | 2023-09-01 07:07 | CT ---
EXAM:CTA, CHESTHISTORY:Shortness of breath, tachypneaTECHNIQUE:Axial postcontrast images with coronal and sagittal reformats. Dose reduction procedures were used with mA/kv adjusted for body size. Three-dimensional maximum intensity projection images were obtained and evaluated. Dose reduction techniques were used with MA/kv adjusted for body size.COMPARISON:09/26/2022FINDINGS:There is no evidence for acute pulmonary thromboembolic disease. Examination of the mediastinum demonstrated no evidence for mediastinal masses, and large mediastinal or enlarged hilar adenopathy. There is mild dilatation of the ascending aorta maximum diameter 4.3 cm stable when compared with prior examination. Heart is enlarged. No pleural effusions are identified. No chest wall or axillary abnormalities identified. Those portions of the upper abdominal organs visualized appeared within normal limits to the limitations of early arterial injection timing with exception of punctate nonobstructing left upper pole renal calculi. Examination of the lung aparicio demonstrated no evidence for masses, alveolar infiltrates, areas of consolidation, or bronchiectasis. There is diffuse peribronchial thickening consistent with bronchitis which could be acute, chronic, or both. No significant pulmonary nodules are identified.IMPRESSION:No evidence for acute pulmonary thromboembolic diseaseNo acute pulmonary infiltratesDiffuse peribronchial thickening consistent with bronchitis which could be acute, chronic, or bothStable mild dilatation of the ascending aortaPunctate nonobstructing left upper pole renal calculi incidentally notedTHIS IS AN ELECTRONICALLY VERIFIED FINAL REPORT09/01/2023 7:03 AM - Electronically signed by Magdy Amanda MD
[2023-09-01] MEDS ORDERED: SOLU-Medrol 125 MG VIAL ONE (07:29)
[2023-09-01] MEDS: SOLU-Medrol 125 MG VIAL IVP ONE (07:32)
[2023-09-01 07:34] LABS: ABG BASE EXCESS 5.8 mmol/L (-2.0-2.0); ABG HCO3 29.8 mmol/L (22-26)
[2023-09-01 07:35] LABS: ABG ALLEN TEST POS
[2023-09-01] MEDS ORDERED: CONSULT PHARMACY - POTASSIUM & MAGNESIUM XX SCH (08:00)
[2023-09-01] MEDS ORDERED: LASIX IVP SCH (09:00)
[2023-09-01] MEDS: ENTRESTO 49/51 MG TABLET PO SCH (11:26)
[2023-09-01] MEDS: FARXIGA PO SCH (11:26)
[2023-09-01] MEDS: DUONEB 0.5 MG/3 MG (3 mL) NEB SCH (15:05)
[2023-09-01] MEDS: LASIX IVP SCH (20:38)
[2023-09-01] MEDS: THIAMINE HCL INJ IVP SCH (20:38)
[2023-09-02 04:58] LABS: HEMOGLOBIN 15.3 g/dL (13.5-18.0)
[2023-09-02 05:03] LABS: BASOPHILS % (AUTO) 0.3 % (0.2-1.0); EOSINOPHILS % (AUTO) 0.2 % (0.9-2.9); HEMATOCRIT 47.6 % (42.0-54.0); LYMPHOCYTES # (AUTO) 1.9 X10^3/uL (1.3-2.9); LYMPHOCYTES % (AUTO) 12.7 % (21.0-51.0); MEAN CORPUSCULAR HEMOGLOBIN 28.5 pg (27.0-34.0); MEAN CORPUSCULAR HGB CONC 32.1 g/dL (33.0-35.0); MEAN CORPUSCULAR VOLUME 88.5 fL (80.0-100.0); MEAN PLATELET VOLUME 9.8 fL (7.4-11.0); MONOCYTES # (AUTO) 1.2 x10^3/uL (0.3-0.8); NEUTROPHILS # (AUTO) 11.5 x10^3/uL (2.2-4.8); NEUTROPHILS % (AUTO) 78.8 % (42.0-75.0); PLATELET COUNT 184 X10^3/uL (150.0-450.0); RED BLOOD COUNT 5.38 X10^6/uL (4.7-6.0); RED CELL DISTRIBUTION WIDTH 13.4 % (11.6-16.5); WHITE BLOOD COUNT 14.6 X10^3/uL (3.6-10.0)
[2023-09-02 05:11] LABS: ALANINE AMINOTRANSFERASE 37 Units/L (12-78); ALBUMIN 2.5 g/dL (3.4-5.0); ALKALINE PHOSPHATASE 99 Units/L (46-116); ASPARTATE AMINO TRANSFERASE 33 Units/L (15-37); BLOOD UREA NITROGEN 26 mg/dL (7-18); CALCIUM 8.4 mg/dL (8.5-10.1); CARBON DIOXIDE 28.3 mmol/L (21-32); CHLORIDE 104 mmol/L (98-107); COR CA(FOR HYPOALB) 9.6 mg/dL (8.5-10.1); COR NA(FOR HYPERGLY) 141 mmol/L (136-145); CREATININE 1.32 mg/dL (0.70-1.30); GLUCOSE 138 mg/dL (65-99); POTASSIUM 3.7 mmol/L (3.5-5.1); SODIUM 140 mmol/L (136-145); TOTAL PROTEIN 6.9 g/dL (6.4-8.2); eGFR NON BLACK RACES 59 (>60)
[2023-09-02] MEDS ORDERED: CONSULT PHARMACY - POTASSIUM & MAGNESIUM XX SCH (07:00)
[2023-09-02] MEDS: K-DUR TAB 20 MEQ PO SCH (08:39)
[2023-09-02] MEDS: MAG-OX TAB PO SCH (08:40)
[2023-09-02] MEDS: ROCEPHIN VIAL 1 GRAM 1 G in NS 100 ML IV 100 ML IV SCH (08:41)
[2023-09-02] MEDS ORDERED: NS 250 ML IV 250 ML IV ONE (08:42)
[2023-09-02] MEDS ORDERED: LOVENOX INJ 40 MG SYR SC SCH (09:00)
[2023-09-02] MEDS ORDERED: SOLU-Medrol 125 MG VIAL IVP SCH (09:00)
[2023-09-02 09:25] VITALS: RESP 18
[2023-09-02 13:13] VITALS: BP 103/65; PULSE 70; TEMP 97.9; O2SAT 93
== END 2023-09-02 12:00 | disposition home or self-care (01) ==
LOC: ER 04:21 → MED/SURG 04:21
PROVIDERS: ADMIT Obstetrics & Gynecology Obstetrics; ATTEND Obstetrics & Gynecology Obstetrics
DX: Z20.822 Contact with and (suspected) exposure to COVID-19; Z86.73 Personal history of transient ischemic attack (TIA), and cerebral infarction without residual deficits; R06.02 Shortness of breath; J44.1 Chronic obstructive pulmonary disease with (acute) exacerbation; R09.02 Hypoxemia; R07.89 Other chest pain; R00.0 Tachycardia, unspecified; Z72.0 Tobacco use; R77.8 Other specified abnormalities of plasma proteins; I25.2 Old myocardial infarction; I42.8 Other cardiomyopathies; J98.09 Other diseases of bronchus, not elsewhere classified; I50.23 Acute on chronic systolic (congestive) heart failure; N30.00 Acute cystitis without hematuria

== ENCOUNTER 2024-12-25 17:01 | Observation (INO) ==
--- NOTE | 2024-12-25 17:47 | EKG ---
Test Reason : chest pain Blood Pressure : */* mmHG Vent. Rate : 84 BPM Atrial Rate : 84 BPM P-R Int : 168 ms QRS Dur : 170 ms QT Int : 446 ms P-R-T Axes : 76 11 99 degrees QTc Int : 527 ms Normal sinus rhythm Possible Left atrial enlargement Left bundle branch block Abnormal ECG When compared with ECG of 10-JUL-2024 08:48, Left bundle branch block is now present Confirmed by Rome Tristan MD ([id number]) on 12/26/2024 7:07:52 AM Referred By: Confirmed By: Rome Tristan MD
[2024-12-25] MEDS ORDERED: ASPIRIN 81 MG CHEWTAB ONE (18:13)
[2024-12-25] MEDS: ASPIRIN 81 MG CHEWTAB PO ONE (18:14)
[2024-12-25 18:30] LABS: BASOPHILS # (AUTO) 0.1 X10^3/uL (0.0-0.1); BASOPHILS % (AUTO) 0.7 % (0.2-1.0); EOSINOPHILS # (AUTO) 0.1 x10^3/uL (0.0-0.2); EOSINOPHILS % (AUTO) 1.7 % (0.9-2.9); HEMATOCRIT 42.1 % (42.0-54.0); HEMOGLOBIN 13.8 g/dL (13.5-18.0); LYMPHOCYTES # (AUTO) 2.5 X10^3/uL (1.3-2.9); LYMPHOCYTES % (AUTO) 31.8 % (21.0-51.0); MEAN CORPUSCULAR HEMOGLOBIN 28.7 pg (27.0-34.0); MEAN CORPUSCULAR HGB CONC 32.9 g/dL (33.0-35.0); MEAN CORPUSCULAR VOLUME 87.2 fL (80.0-100.0); MEAN PLATELET VOLUME 9.2 fL (7.4-11.0); MONOCYTES # (AUTO) 0.5 x10^3/uL (0.3-0.8); MONOCYTES % (AUTO) 6.6 % (0.0-13.0); NEUTROPHILS # (AUTO) 4.6 x10^3/uL (2.2-4.8); NEUTROPHILS % (AUTO) 59.2 % (42.0-75.0); PLATELET COUNT 139 X10^3/uL (150.0-450.0); RED BLOOD COUNT 4.82 X10^6/uL (4.7-6.0); RED CELL DISTRIBUTION WIDTH 14.1 % (11.6-16.5); WHITE BLOOD COUNT 7.8 X10^3/uL (3.6-10.0)
[2024-12-25 18:37] LABS: INR 1.11 (0.8-1.3)
--- NOTE | 2024-12-25 18:53 | DR.GENAD ---
HPI Time Seen Time Seen by Provider: 12/25/24 18:51 PCP Primary Care Physician: Batres Complaint/Symptoms Chief Complaint Doctors Comments: Claim bilateral upper extremity numbness for 2 days. He states he has had a cardiac workup 7 times before they did the cardiac catheterization he has never had any blockages in his arteries. He does have a history of a renal mass he said it was found by a months ago he supposed to get a biopsy of the kidney but he has not been able to get that done. He said the people that he tried to get it done with did not accept his insurance. He complains of some blood in his urine also. Chief Complaint:: pt c/o bilateral upper ext numbness that started 2 days ago. C/o chest tightness but states that he always has this issue. Has not taken any nitro at home for CP. Reports urinating lots of blood for about 3 weeks, does have hx of renal mass. c/o SOB, 97% on Room air. 1 episode of vomiting this morning COVID-19 Coronavirus risk:travel/contact w/high risk person: No Has patient experienced Coronavirus symptoms: No Source History Provided: Patient Mode of Arrival Mode of Arrival: Ambulatory Timing Onset of Chief Complaint: 12/23/24 PMH PMH Past Medical History: Yes Past Medical History: Angina, CHF, Hypertension, Kidney Stones and SC Past Surgical History: Yes Surgical History: Ortho Surgery and Tonsillectomy Family History History of Family Medical Conditions: Yes Family Medical History: SC and Coronary Artery Disease Social History Type of Tobacco Use: Cigarettes Alcohol Use: DAILY Do you use any recreational Drugs:: Yes (marijuana and meth) Lives With: Friend Lives Where: Home Travel Risk Coronavirus risk:travel/contact w/high risk person: No Has patient experienced Coronavirus symptoms: No Infectious screening Have you traveled outside the country in the last 6 months?: No Isolation: Standard PE Vital Signs Vitals: Vital Signs Temperature 97.2 F Pulse Rate 80 Pulse Rate 89 Pulse Rate 83 Pulse Rate 81 Pulse Rate 81 Pulse Rate 83 Pulse Rate 81 Pulse Rate 86 Pulse Rate 84 Pulse Rate 90 Respiratory Rate 29 Respiratory Rate 32 Respiratory Rate 23 Respiratory Rate 21 Respiratory Rate 22 Respiratory Rate 25 Respiratory Rate 29 Respiratory Rate 18 Blood Pressure 136/90 Blood Pressure 136/90 Blood Pressure 131/82 Blood Pressure 134/98 O2 Sat by Pulse Oximetry 97 O2 Sat by Pulse Oximetry 98 O2 Sat by Pulse Oximetry 97 O2 Sat by Pulse Oximetry 97 O2 Sat by Pulse Oximetry 96 O2 Sat by Pulse Oximetry 98 O2 Sat by Pulse Oximetry 98 O2 Sat by Pulse Oximetry 97 O2 Sat by Pulse Oximetry 97 O2 Sat by Pulse Oximetry 97 COURSE Treatment Treatment: This patient was signed out to Dr. Maza [facility] Labs Reviewed 12/27/24 05:44 12/27/24 05:44 Laboratory: 12/25/24 19:49 Urine,Clean Catch Urine Culture - Final Staphylococcus Haemolyticus WBC 7.8 X10^3/uL (3.6-10.0) 12/25/24 18:19 RBC 4.82 X10^6/uL (4.7-6.0) 12/25/24 18:19 Hgb 13.8 g/dL (13.5-18.0) 12/25/24 18:19 Hct 42.1 % (42.0-54.0) 12/25/24 18:19 MCV 87.2 fL (80.0-100.0) 12/25/24 18:19 MCH 28.7 pg (27.0-34.0) 12/25/24 18:19 MCHC 32.9 g/dL (33.0-35.0) L 12/25/24 18:19 RDW 14.1 % (11.6-16.5) 12/25/24 18:19 Plt Count 139 X10^3/uL (150.0-450.0) L 12/25/24 18:19 MPV 9.2 fL (7.4-11.0) 12/25/24 18:19 Neut % (Auto) 59.2 % (42.0-75.0) 12/25/24 18:19 Lymph % (Auto) 31.8 % (21.0-51.0) 12/25/24 18:19 [place] % (Auto) 6.6 % (0.0-13.0) 12/25/24 18:19 Eos % (Auto) 1.7 % (0.9-2.9) 12/25/24 18:19 Baso % (Auto) 0.7 % (0.2-1.0) 12/25/24 18:19 Neut # (Auto) 4.6 x10^3/uL (2.2-4.8) 12/25/24 18:19 Lymph # (Auto) 2.5 X10^3/uL (1.3-2.9) 12/25/24 18:19 [place] # (Auto) 0.5 x10^3/uL (0.3-0.8) 12/25/24 18:19 Eos # (Auto) 0.1 x10^3/uL (0.0-0.2) 12/25/24 18:19 Baso # (Auto) 0.1 X10^3/uL (0.0-0.1) 12/25/24 18:19 Absolute Nucleated RBC 0.1 /100WBC 12/25/24 18:19 PT 14.4 SECONDS (11.8-14.3) 12/25/24 18:19 INR Target Range - 12/25/24 18:19 INR 1.11 (0.8-1.3) 12/25/24 18:19 APTT 31.6 SECONDS (22.9-36.5) 12/25/24 18:19 PTT Comment - 12/25/24 18:19 D-Dimer 0.27 ug/ml (0.0-0.57) 12/25/24 18:19 Sodium 142 mmol/L (136-145) 12/25/24 18:19 Corrected Sodium TNP 12/25/24 18:19 Potassium 4.4 mmol/L (3.5-5.1) 12/25/24 18:19 Chloride 108 mmol/L (98-107) H 12/25/24 18:19 Carbon Dioxide 25.5 mmol/L (21-32) 12/25/24 18:19 BUN 22 mg/dL (7-18) H 12/25/24 18:19 Creatinine 1.42 mg/dL (0.70-1.30) H 12/25/24 18:19 Est GFR (MDRD) Af Amer > 60 (>60) 12/25/24 18:19 Est GFR (MDRD) Non-Af 54 (>60) L 12/25/24 18:19 Glucose 90 mg/dL (65-99) 12/25/24 18:19 Calcium 8.4 mg/dL (8.5-10.1) L 12/25/24 18:19 Corrected Calcium 9.1 mg/dL (8.5-10.1) 12/25/24 18:19 Total Bilirubin 1.40 mg/dL (0.2-1.0) H 12/25/24 18:19 AST 40 Units/L (15-37) H 12/25/24 18:19 ALT 40 Units/L (12-78) 12/25/24 18:19 Alkaline Phosphatase 102 Units/L (46-116) 12/25/24 18:19 Creatine Kinase 50 Units/L (39-308) 12/25/24 18:19 Troponin I High Sens 70.1 ng/L (4.0-60.0) H* 12/25/24 20:10 B-Natriuretic Peptide 3780 pg/mL (0-79) H 12/25/24 18:19 Total Protein 7.2 g/dL (6.4-8.2) 12/25/24 18:19 Albumin 3.1 g/dL (3.4-5.0) L 12/25/24 18:19 Globulin 4.1 g/dL (2.5-4.5) 12/25/24 18:19 Albumin/Globulin Ratio 0.8 Ratio (1.1-2.1) L 12/25/24 18:19 Specimen Type Clean catch urine 12/25/24 19:49 Urine Color Yellow (YELLOW) 12/25/24 19:49 Urine Appearance Clear (CLEAR) 12/25/24 19:49 Urine pH 6.0 (5.0 - 8.0) 12/25/24 19:49 Ur Specific [place] 1.015 (1.000-1.030) 12/25/24 19:49 Urine Protein 3+ (NEGATIVE) 12/25/24 19:49 Urine Glucose (UA) Negative (NEGATIVE) 12/25/24 19:49 Urine Ketones Negative (NEGATIVE) 12/25/24 19:49 Urine Blood 5+ (NEGATIVE) 12/25/24 19:49 Urine Nitrite Negative (NEGATIVE) 12/25/24 19:49 Urine Bilirubin Negative (NEGATIVE) 12/25/24 19:49 Urine Urobilinogen Normal (NORMAL) 12/25/24 19:49 Ur Leukocyte Esterase 3+ (NEGATIVE) 12/25/24 19:49 Urine RBC Tntc /HPF (0-3) A 12/25/24 19:49 Urine WBC 20-30 /HPF (0-5) A 12/25/24 19:49 Ur Squamous Epith Cells Negative /HPF (NEGATIVE) 12/25/24 19:49 Urine Bacteria Negative /HPF (NEGATIVE) 12/25/24 19:49 Ur Culture Indicated? Yes/culture set up 12/25/24 19:49 Urine Opiates Screen Negative (NEG=<300) 12/25/24 19:47 Urine Methadone Screen Negative (NEG=<300) 12/25/24 19:47 Ur Barbiturates Screen Negative (NEG=<200) 12/25/24 19:47 Ur Phencyclidine Scrn Negative (NEG=<25) 12/25/24 19:47 Ur Amphetamines Screen Positive (NEG=<1000) 12/25/24 19:47 U Benzodiazepines Scrn Negative (NEG=<200) 12/25/24 19:47 Urine Cocaine Screen Negative (NEG=<300) 12/25/24 19:47 U Marijuana (THC) Screen Negative (NEG=<50) 12/25/24 19:47 Opioid Opioid Risk Tool Age (Trey box if 16-45): No History of Preadolescent Sexual Abuse: No Total: 0 Total Score Risk Category: Low Risk Copyright: Rian GILMORE predicting aberrant behaviors Discharge Plan Diagnosis Discharge Problem: Kidney stone, Elevated troponin Chest pain Qualifiers: Chest pain type: precordial pain Qualified Code(s): R07.2 - Precordial pain CHF (congestive heart failure) Qualifiers: Heart failure type: unspecified Heart failure chronicity: chronic Qualified Code(s): I50.9 - Heart failure, unspecified UTI (urinary tract infection) Qualifiers: Urinary tract infection type: site unspecified Hematuria presence: with hematuria Qualified Code(s): N39.0 - Urinary tract infection, site not specified Hematuria Qualifiers: Hematuria type: unspecified type Qualified Code(s): R31.9 - Hematuria, unspecified Discharge Plan Patient Disposition: 09 ADMITTED INPATIENT Condition: Stable Orders to Discharge Patient Discharge Orders: Discharge by Transfer to Outside Facility (Routine); Ordered 12/27/24 Ordered By: JP BATRES
[2024-12-25 18:58] LABS: ALANINE AMINOTRANSFERASE 40 Units/L (12-78); ALBUMIN 3.1 g/dL (3.4-5.0); ALKALINE PHOSPHATASE 102 Units/L (46-116); ASPARTATE AMINO TRANSFERASE 40 Units/L (15-37); BLOOD UREA NITROGEN 22 mg/dL (7-18); CALCIUM 8.4 mg/dL (8.5-10.1); CARBON DIOXIDE 25.5 mmol/L (21-32); CHLORIDE 108 mmol/L (98-107); COR CA(FOR HYPOALB) 9.1 mg/dL (8.5-10.1); CREATINE KINASE 50 Units/L (39-308); CREATININE 1.42 mg/dL (0.70-1.30); GLUCOSE 90 mg/dL (65-99); POTASSIUM 4.4 mmol/L (3.5-5.1); SODIUM 142 mmol/L (136-145); TOTAL PROTEIN 7.2 g/dL (6.4-8.2); eGFR NON BLACK RACES 54 (>60)
[2024-12-25] MEDS: LASIX IVP ONE (19:04)
[2024-12-25 19:58] LABS: BILIRUBIN,URINE NEGATIVE (NEGATIVE); BLOOD/HEMOGLOBIN,URINE 5+ (NEGATIVE); GLUCOSE, URINE NEGATIVE (NEGATIVE); KETONES,URINE NEGATIVE (NEGATIVE); LEUKOCYTE ESTERASE ,URINE 3+ (NEGATIVE); NITRITES,URINE NEGATIVE (NEGATIVE); PROTEIN,URINE 3+ (NEGATIVE); UROBILINOGEN,URINE NORMAL (NORMAL)
[2024-12-25 20:02] LABS: APPEARANCE,URINE CLEAR (CLEAR); COLOR,URINE YELLOW (YELLOW)
[2024-12-25 20:05] LABS: BACTERIA,URINE NEGATIVE /HPF (NEGATIVE); RBC,URINE TNTC /HPF (0-3); SQUAMOUS EPITHELIAL CELL,UR NEGATIVE /HPF (NEGATIVE)
--- NOTE | 2024-12-25 20:22 | CT ---
EXAM: CT ABDOMEN AND PELVIS WITHOUT CONTRAST (STONE STUDY) HISTORY: URINATING BLOOD; COMPARISON: None. TECHNIQUE: Axial CT images were obtained through the urinary tract without contrast. Coronal reformatted images were included. All CT scans at this facility use dose modulation, iterative reconstruction, and/or weight based dosing when appropriate to reduce radiation dose to as low as reasonably achievable. FINDINGS: Please note that without the use of intravenous contrast, evaluation of organ parenchyma is limited. URINARY TRACT: Multiple nonobstructive renal calculi are noted bilaterally. There is a large stone in the right renal pelvis measuring 20 mm in diameter axial image 31. No ureteral stones. No definite bladder abnormality LOWER THORAX: Cardiomegaly. LIVER: Within normal limits, as visualized. GALLBLADDER: Within normal limits. SPLEEN: Within normal limits, as visualized. PANCREAS: Within normal limits, as visualized. ADRENAL GLANDS: Within normal limits. GI TRACT: Moderate colonic stool LYMPH NODES: No lymphadenopathy VESSELS: Within normal limits without benefit of IV contrast. PERITONEUM / RETROPERITONEUM: No free fluid or gas. GENITALS: Prostate is mildly enlarged BONES: Within normal limits. IMPRESSION: Nonobstructive renal calculi are present bilaterally to include a large 20 mm stone in the right renal pelvis with the associated right-sided hydronephrosis. This may be the etiology of the patient's hematuria. THIS IS AN ELECTRONICALLY VERIFIED FINAL REPORT 12/25/2024 8:18 PM - Electronically signed by Jesu Walls MD
--- NOTE | 2024-12-25 20:57 | DR.GENAD ---
HPI Time Seen Time Seen by Provider: 12/25/24 18:51 PCP Primary Care Physician: Leggett Complaint/Symptoms Chief Complaint:: pt c/o bilateral upper ext numbness that started 2 days ago. C/o chest tightness but states that he always has this issue. Has not taken any nitro at home for CP. Reports urinating lots of blood for about 3 weeks, does have hx of renal mass. c/o SOB, 97% on Room air. 1 episode of vomiting this morning COVID-19 Coronavirus risk:travel/contact w/high risk person: No Has patient experienced Coronavirus symptoms: No Source History Provided: Patient Mode of Arrival Mode of Arrival: Ambulatory Timing Onset of Chief Complaint: 12/23/24 PMH PMH Past Medical History: Yes Past Medical History: Angina, CHF, Hypertension, Kidney Stones and [place] Past Surgical History: Yes Surgical History: Ortho Surgery and Tonsillectomy Family History History of Family Medical Conditions: Yes Family Medical History: [place] and Coronary Artery Disease Social History Type of Tobacco Use: Cigarettes Alcohol Use: DAILY Do you use any recreational Drugs:: Yes (marijuana and meth) Lives With: Friend Lives Where: Home Travel Risk Coronavirus risk:travel/contact w/high risk person: No Has patient experienced Coronavirus symptoms: No Infectious screening Have you traveled outside the country in the last 6 months?: No Isolation: Standard PE Vital Signs Vitals: Vital Signs Temperature 97.2 F Pulse Rate 67 Pulse Rate 79 Pulse Rate 77 Pulse Rate 71 Pulse Rate 78 Pulse Rate 77 Pulse Rate 84 Pulse Rate 65 Pulse Rate 85 Pulse Rate 79 Pulse Rate 80 Pulse Rate 89 Pulse Rate 83 Pulse Rate 81 Pulse Rate 81 Pulse Rate 83 Pulse Rate 81 Pulse Rate 86 Pulse Rate 84 Pulse Rate 90 Respiratory Rate 29 Respiratory Rate 32 Respiratory Rate 23 Respiratory Rate 21 Respiratory Rate 22 Respiratory Rate 25 Respiratory Rate 29 Respiratory Rate 18 Blood Pressure 125/87 Blood Pressure 125/87 Blood Pressure 114/72 Blood Pressure 114/72 Blood Pressure 123/83 Blood Pressure 123/83 Blood Pressure 122/79 Blood Pressure 132/88 Blood Pressure 132/88 Blood Pressure 132/81 Blood Pressure 129/98 Blood Pressure 127/90 Blood Pressure 127/90 Blood Pressure 136/90 Blood Pressure 136/90 Blood Pressure 131/82 Blood Pressure 134/98 O2 Sat by Pulse Oximetry 97 O2 Sat by Pulse Oximetry 97 O2 Sat by Pulse Oximetry 96 O2 Sat by Pulse Oximetry 96 O2 Sat by Pulse Oximetry 97 O2 Sat by Pulse Oximetry 97 O2 Sat by Pulse Oximetry 97 O2 Sat by Pulse Oximetry 80 O2 Sat by Pulse Oximetry 98 O2 Sat by Pulse Oximetry 98 O2 Sat by Pulse Oximetry 97 O2 Sat by Pulse Oximetry 98 O2 Sat by Pulse Oximetry 97 O2 Sat by Pulse Oximetry 97 O2 Sat by Pulse Oximetry 96 O2 Sat by Pulse Oximetry 98 O2 Sat by Pulse Oximetry 98 O2 Sat by Pulse Oximetry 97 O2 Sat by Pulse Oximetry 97 O2 Sat by Pulse Oximetry 97 COURSE Treatment Treatment: Patient, sign out to me by Dr. Conteh at change of service. Labs and CT discussed with patient. BNP and troponin levels elevated Patient will be admitted to hospital for further management. patient was discussed with Dr. Pepe, and he will admit patient. [facility] Labs Reviewed Laboratory Results Reviewed?: Yes 12/26/24 05:47 12/26/24 05:47 Laboratory: 12/25/24 19:49 Urine,Clean Catch Urine Culture - Preliminary WBC 7.8 X10^3/uL (3.6-10.0) 12/25/24 18:19 RBC 4.82 X10^6/uL (4.7-6.0) 12/25/24 18:19 Hgb 13.8 g/dL (13.5-18.0) 12/25/24 18:19 Hct 42.1 % (42.0-54.0) 12/25/24 18:19 MCV 87.2 fL (80.0-100.0) 12/25/24 18:19 MCH 28.7 pg (27.0-34.0) 12/25/24 18:19 MCHC 32.9 g/dL (33.0-35.0) L 12/25/24 18:19 RDW 14.1 % (11.6-16.5) 12/25/24 18:19 Plt Count 139 X10^3/uL (150.0-450.0) L 12/25/24 18:19 MPV 9.2 fL (7.4-11.0) 12/25/24 18:19 Neut % (Auto) 59.2 % (42.0-75.0) 12/25/24 18:19 Lymph % (Auto) 31.8 % (21.0-51.0) 12/25/24 18:19 [place] % (Auto) 6.6 % (0.0-13.0) 12/25/24 18:19 Eos % (Auto) 1.7 % (0.9-2.9) 12/25/24 18:19 Baso % (Auto) 0.7 % (0.2-1.0) 12/25/24 18:19 Neut # (Auto) 4.6 x10^3/uL (2.2-4.8) 12/25/24 18:19 Lymph # (Auto) 2.5 X10^3/uL (1.3-2.9) 12/25/24 18:19 [place] # (Auto) 0.5 x10^3/uL (0.3-0.8) 12/25/24 18:19 Eos # (Auto) 0.1 x10^3/uL (0.0-0.2) 12/25/24 18:19 Baso # (Auto) 0.1 X10^3/uL (0.0-0.1) 12/25/24 18:19 Absolute Nucleated RBC 0.1 /100WBC 12/25/24 18:19 PT 14.4 SECONDS (11.8-14.3) 12/25/24 18:19 INR Target Range - 12/25/24 18:19 INR 1.11 (0.8-1.3) 12/25/24 18:19 APTT 31.6 SECONDS (22.9-36.5) 12/25/24 18:19 PTT Comment - 12/25/24 18:19 D-Dimer 0.27 ug/ml (0.0-0.57) 12/25/24 18:19 Sodium 142 mmol/L (136-145) 12/25/24 18:19 Corrected Sodium TNP 12/25/24 18:19 Potassium 4.4 mmol/L (3.5-5.1) 12/25/24 18:19 Chloride 108 mmol/L (98-107) H 12/25/24 18:19 Carbon Dioxide 25.5 mmol/L (21-32) 12/25/24 18:19 BUN 22 mg/dL (7-18) H 12/25/24 18:19 Creatinine 1.42 mg/dL (0.70-1.30) H 12/25/24 18:19 Est GFR (MDRD) Af Amer > 60 (>60) 12/25/24 18:19 Est GFR (MDRD) Non-Af 54 (>60) L 12/25/24 18:19 Glucose 90 mg/dL (65-99) 12/25/24 18:19 Calcium 8.4 mg/dL (8.5-10.1) L 12/25/24 18:19 Corrected Calcium 9.1 mg/dL (8.5-10.1) 12/25/24 18:19 Total Bilirubin 1.40 mg/dL (0.2-1.0) H 12/25/24 18:19 AST 40 Units/L (15-37) H 12/25/24 18:19 ALT 40 Units/L (12-78) 12/25/24 18:19 Alkaline Phosphatase 102 Units/L (46-116) 12/25/24 18:19 Creatine Kinase 50 Units/L (39-308) 12/25/24 18:19 Troponin I High Sens 70.1 ng/L (4.0-60.0) H* 12/25/24 20:10 B-Natriuretic Peptide 3780 pg/mL (0-79) H 12/25/24 18:19 Total Protein 7.2 g/dL (6.4-8.2) 12/25/24 18:19 Albumin 3.1 g/dL (3.4-5.0) L 12/25/24 18:19 Globulin 4.1 g/dL (2.5-4.5) 12/25/24 18:19 Albumin/Globulin Ratio 0.8 Ratio (1.1-2.1) L 12/25/24 18:19 Specimen Type Clean catch urine 12/25/24 19:49 Urine Color Yellow (YELLOW) 12/25/24 19:49 Urine Appearance Clear (CLEAR) 12/25/24 19:49 Urine pH 6.0 (5.0 - 8.0) 12/25/24 19:49 Ur Specific Leroy 1.015 (1.000-1.030) 12/25/24 19:49 Urine Protein 3+ (NEGATIVE) 12/25/24 19:49 Urine Glucose (UA) Negative (NEGATIVE) 12/25/24 19:49 Urine Ketones Negative (NEGATIVE) 12/25/24 19:49 Urine Blood 5+ (NEGATIVE) 12/25/24 19:49 Urine Nitrite Negative (NEGATIVE) 12/25/24 19:49 Urine Bilirubin Negative (NEGATIVE) 12/25/24 19:49 Urine Urobilinogen Normal (NORMAL) 12/25/24 19:49 Ur Leukocyte Esterase 3+ (NEGATIVE) 12/25/24 19:49 Urine RBC Tntc /HPF (0-3) A 12/25/24 19:49 Urine WBC 20-30 /HPF (0-5) A 12/25/24 19:49 Ur Squamous Epith Cells Negative /HPF (NEGATIVE) 12/25/24 19:49 Urine Bacteria Negative /HPF (NEGATIVE) 12/25/24 19:49 Ur Culture Indicated? Yes/culture set up 12/25/24 19:49 Urine Opiates Screen Negative (NEG=<300) 12/25/24 19:47 Urine Methadone Screen Negative (NEG=<300) 12/25/24 19:47 Ur Barbiturates Screen Negative (NEG=<200) 12/25/24 19:47 Ur Phencyclidine Scrn Negative (NEG=<25) 12/25/24 19:47 Ur Amphetamines Screen Positive (NEG=<1000) 12/25/24 19:47 U Benzodiazepines Scrn Negative (NEG=<200) 12/25/24 19:47 Urine Cocaine Screen Negative (NEG=<300) 12/25/24 19:47 U Marijuana (THC) Screen Negative (NEG=<50) 12/25/24 19:47 Opioid Opioid Risk Tool Age (Trey box if 16-45): No History of Preadolescent Sexual Abuse: No Total: 0 Total Score Risk Category: Low Risk Copyright: Rian [facility]ILMORE predicting aberrant behaviors Discharge Plan Diagnosis Discharge Problem: Kidney stone, Elevated troponin Chest pain Qualifiers: Chest pain type: precordial pain Qualified Code(s): R07.2 - Precordial pain CHF (congestive heart failure) Qualifiers: Heart failure type: unspecified Heart failure chronicity: chronic Qualified Code(s): I50.9 - Heart failure, unspecified UTI (urinary tract infection) Qualifiers: Urinary tract infection type: site unspecified Hematuria presence: with hematuria Qualified Code(s): N39.0 - Urinary tract infection, site not specified Hematuria Qualifiers: Hematuria type: unspecified type Qualified Code(s): R31.9 - Hematuria, unspecified Discharge Plan Patient Disposition: 09 ADMITTED INPATIENT Condition: Stable
[2024-12-25] MEDS: ROCEPHIN VIAL 1 GRAM IV SCH (21:49)
[2024-12-26 01:17] VITALS: BMI 22.1
--- NOTE | 2024-12-26 02:05 | RAD ---
EXAM: FRONTAL VIEW CHEST X-RAY HISTORY: Numbness COMPARISON: 07/10/2024 FINDINGS: The patient is wearing a necklace. Subsegmental atelectasis is noted No focal consolidation is seen. The heart size is enlarged but stable from prior exam and without definitive evidence of pulmonary edema The mediastinum is unremarkable. There is no evidence of pleural effusion or gross pneumothorax. The trachea is midline. IMPRESSION: 1. The patient is wearing a necklace. 2. Subsegmental atelectasis is noted 3. No focal consolidation is seen. 4. The heart size is enlarged but stable from prior exam and without definitive evidence of pulmonary edema THIS IS AN ELECTRONICALLY VERIFIED FINAL REPORT 12/26/2024 2:02 AM - Electronically signed by Ramses Buenrostro MD
[2024-12-26 06:07] LABS: BASOPHILS # (AUTO) 0.1 X10^3/uL (0.0-0.1); BASOPHILS % (AUTO) 0.7 % (0.2-1.0); EOSINOPHILS # (AUTO) 0.2 x10^3/uL (0.0-0.2); EOSINOPHILS % (AUTO) 3.1 % (0.9-2.9); HEMATOCRIT 42.2 % (42.0-54.0); HEMOGLOBIN 14.1 g/dL (13.5-18.0); LYMPHOCYTES % (AUTO) 37.4 % (21.0-51.0); MEAN CORPUSCULAR HEMOGLOBIN 28.9 pg (27.0-34.0); MEAN CORPUSCULAR HGB CONC 33.4 g/dL (33.0-35.0); MEAN CORPUSCULAR VOLUME 86.6 fL (80.0-100.0); MEAN PLATELET VOLUME 9.7 fL (7.4-11.0); MONOCYTES # (AUTO) 0.6 x10^3/uL (0.3-0.8); MONOCYTES % (AUTO) 7.2 % (0.0-13.0); NEUTROPHILS # (AUTO) 4.1 x10^3/uL (2.2-4.8); NEUTROPHILS % (AUTO) 51.6 % (42.0-75.0); PLATELET COUNT 142 X10^3/uL (150.0-450.0); RED BLOOD COUNT 4.88 X10^6/uL (4.7-6.0); RED CELL DISTRIBUTION WIDTH 14.2 % (11.6-16.5); WHITE BLOOD COUNT 7.9 X10^3/uL (3.6-10.0)
[2024-12-26 06:24] LABS: ALANINE AMINOTRANSFERASE 37 Units/L (12-78); ALBUMIN 2.8 g/dL (3.4-5.0); ALKALINE PHOSPHATASE 99 Units/L (46-116); ASPARTATE AMINO TRANSFERASE 40 Units/L (15-37); BLOOD UREA NITROGEN 20 mg/dL (7-18); CALCIUM 8.4 mg/dL (8.5-10.1); CARBON DIOXIDE 33.2 mmol/L (21-32); CHLORIDE 106 mmol/L (98-107); COR CA(FOR HYPOALB) 9.4 mg/dL (8.5-10.1); CREATININE 1.38 mg/dL (0.70-1.30); GLUCOSE 102 mg/dL (65-99); MAGNESIUM 2.1 mg/dL (2.0-2.9); POTASSIUM 3.6 mmol/L (3.5-5.1); SODIUM 144 mmol/L (136-145); eGFR NON BLACK RACES 55 (>60)
[2024-12-26] MEDS ORDERED: CONSULT PHARMACY - POTASSIUM & MAGNESIUM XX SCH (08:00)
[2024-12-26] MEDS: COREG TAB 6.25 MG PO SCH (09:22)
[2024-12-26] MEDS: ROCEPHIN VIAL 1 GRAM 1 G in NS 100 ML IV 100 ML IV SCH (09:22)
[2024-12-26] MEDS: ENTRESTO 24/26 MG TABLET PO SCH (09:22)
[2024-12-26] MEDS: K-DUR TAB 20 MEQ PO SCH (09:22)
[2024-12-26] MEDS: LASIX IVP SCH (09:22)
[2024-12-26] MEDS: NS 500 ML IV 500 ML IV ONE (09:23)
[2024-12-26] MEDS: ASPIRIN PO STA (09:34)
[2024-12-27 04:23] VITALS: PULSE 56
[2024-12-27 06:05] LABS: BASOPHILS # (AUTO) 0.1 X10^3/uL (0.0-0.1); BASOPHILS % (AUTO) 0.7 % (0.2-1.0); EOSINOPHILS # (AUTO) 0.3 x10^3/uL (0.0-0.2); EOSINOPHILS % (AUTO) 4.1 % (0.9-2.9); HEMATOCRIT 47.5 % (42.0-54.0); LYMPHOCYTES % (AUTO) 36.9 % (21.0-51.0); MEAN CORPUSCULAR HGB CONC 33.7 g/dL (33.0-35.0); MEAN CORPUSCULAR VOLUME 86.1 fL (80.0-100.0); MEAN PLATELET VOLUME 9.4 fL (7.4-11.0); MONOCYTES # (AUTO) 0.7 x10^3/uL (0.3-0.8); MONOCYTES % (AUTO) 8.5 % (0.0-13.0); NEUTROPHILS # (AUTO) 4.1 x10^3/uL (2.2-4.8); NEUTROPHILS % (AUTO) 49.8 % (42.0-75.0); PLATELET COUNT 176 X10^3/uL (150.0-450.0); RED BLOOD COUNT 5.51 X10^6/uL (4.7-6.0); RED CELL DISTRIBUTION WIDTH 14.1 % (11.6-16.5); WHITE BLOOD COUNT 8.1 X10^3/uL (3.6-10.0)
[2024-12-27 06:26] LABS: ALANINE AMINOTRANSFERASE 40 Units/L (12-78); ALBUMIN 3.2 g/dL (3.4-5.0); ALKALINE PHOSPHATASE 105 Units/L (46-116); ASPARTATE AMINO TRANSFERASE 48 Units/L (15-37); BLOOD UREA NITROGEN 26 mg/dL (7-18); CARBON DIOXIDE 27.7 mmol/L (21-32); CHLORIDE 104 mmol/L (98-107); COR CA(FOR HYPOALB) 9.6 mg/dL (8.5-10.1); GLUCOSE 94 mg/dL (65-99); POTASSIUM 3.9 mmol/L (3.5-5.1); SODIUM 141 mmol/L (136-145); TOTAL PROTEIN 8.5 g/dL (6.4-8.2); eGFR NON BLACK RACES 55 (>60)
[2024-12-27 07:42] VITALS: BP 129/62; RESP 17; TEMP 97.3; O2SAT 95
[2024-12-27] MEDS: ENTRESTO 49/51 MG TABLET PO SCH (08:43)
[2024-12-27] MEDS: LASIX PO SCH (08:43)
[2024-12-27] MEDS ORDERED: ROCEPHIN VIAL 1 GRAM 1 G in NS 100 ML IV 100 ML IV SCH (09:00)
== END 2024-12-27 11:40 | disposition short-term general hospital (02) ==
LOC: SUPCPDRO → ER 17:13 → MED/SURG 17:13
PROVIDERS: ADMIT Internal Medicine; ATTEND Obstetrics & Gynecology Obstetrics
DX: F10.90 Alcohol use, unspecified, uncomplicated; B95.7 Other staphylococcus as the cause of diseases classified elsewhere; R31.9 Hematuria, unspecified; E80.6 Other disorders of bilirubin metabolism; I50.9 Heart failure, unspecified; F15.90 Other stimulant use, unspecified, uncomplicated; R94.4 Abnormal results of kidney function studies; R07.89 Other chest pain; F12.90 Cannabis use, unspecified, uncomplicated; J98.11 Atelectasis; I11.0 Hypertensive heart disease with heart failure; R79.89 Other specified abnormal findings of blood chemistry; I44.7 Left bundle-branch block, unspecified; R53.1 Weakness; N13.6 Pyonephrosis; Z72.0 Tobacco use; R94.31 Abnormal electrocardiogram [ECG] [EKG]; R20.2 Paresthesia of skin

== ENCOUNTER 2025-05-26 09:38 | Observation (INO) ==
--- NOTE | 2025-05-26 09:57 | DR.CP ---
HPI Time Seen Time Seen by Provider: 05/26/25 09:40 Complaint Chief Complaint Doctor Comments: 5-year-old male to ED from home POV with chest pain shortness of breath since this morning History of CAD [place] CHF PMH PMH Past Medical History: Angina, CHF, Hypertension, Kidney Stones and [place] Past Surgical History: Yes Surgical History: Ortho Surgery and Tonsillectomy Family History Family Medical History: [place] Social History Do you use any recreational Drugs:: Yes (meth, marijuana, cocaine) ROS Review of Systems Constitutional: No Symptoms Reported Eyes: No Symptoms Reported ENTM: No Symptoms Reported Respiratoy: See HPI and Short of Breath Cardiovascular: See HPI and Chest Pain Gastrointestinal/Abdominal: No Symptoms Reported Genitourinary: No Symptoms Reported Neurological: No Symptoms Reported Musculoskeletal: No Symptoms Reported Integumentary: No Symptoms Reported Hematologic/Lymphatic: No Symptoms Reported Endocrine: No Symptoms Reported Psychiatric: No Symptoms Reported All Other Systems: Reviewed and Negative PE Vitals Vitals: Vital Signs Temperature 98.0 F Pulse Rate 79 Pulse Rate 79 Pulse Rate 78 Pulse Rate 72 Pulse Rate 87 Pulse Rate 74 Pulse Rate 92 Pulse Rate 84 Pulse Rate 82 Pulse Rate 81 Pulse Rate 77 Pulse Rate 75 Pulse Rate 80 Respiratory Rate 24 Respiratory Rate 23 Respiratory Rate 20 Respiratory Rate 33 Respiratory Rate 34 Respiratory Rate 27 Respiratory Rate 25 Respiratory Rate 20 Respiratory Rate 17 Respiratory Rate 22 Respiratory Rate 24 Respiratory Rate 22 Respiratory Rate 21 Blood Pressure 126/76 Blood Pressure 138/83 Blood Pressure 131/87 Blood Pressure 131/93 Blood Pressure 143/100 Blood Pressure 133/89 O2 Sat by Pulse Oximetry 98 O2 Sat by Pulse Oximetry 97 O2 Sat by Pulse Oximetry 97 O2 Sat by Pulse Oximetry 98 O2 Sat by Pulse Oximetry 96 O2 Sat by Pulse Oximetry 98 O2 Sat by Pulse Oximetry 98 General Limitations: No Limitations General Appearance: Alert and In No Apparent Distress Head Head Exam: Normal Inspection Eyes Eye exam: Normal Appearance ENT ENT Exam: Normal Exam Chest Chest Inspection: Normal Inspection Respiratory Respiratory Exam: Normal Lung Sounds Bilat Cardiovascular Cardiovascular Exam: Regular Rate and Normal Rhythm Pulse: Normal Edema: Normal Abdominal Exam Abdominal Exam: Normal Inspection, Normal Bowel Sounds and Soft Extremities Extremities Exam: Normal Inspection Back Back Exam: Normal Inspection Neurologic Neurological Exam: Alert and Oriented X3 Psychiatric Psychiatric Exam: Normal Affect and Normal Mood Skin Skin Exam: Warm, Dry, Intact and Normal Color COURSE Treatment Treatment: Discussed findings with patient and family patient feels that he should be admitted to the hospital secondary to shortness of breath discussed with Dr. Batres will admit [facility] Labs Reviewed 05/26/25 10:02 05/26/25 10:02 Laboratory: WBC 7.2 X10^3/uL (3.6-10.0) 05/26/25 10:02 RBC 4.42 X10^6/uL (4.7-6.0) L 05/26/25 10:02 Hgb 13.1 g/dL (13.5-18.0) L 05/26/25 10:02 Hct 39.6 % (42.0-54.0) L 05/26/25 10:02 MCV 89.6 fL (80.0-100.0) 05/26/25 10:02 MCH 29.5 pg (27.0-34.0) 05/26/25 10:02 MCHC 33.0 g/dL (33.0-35.0) 05/26/25 10:02 RDW 14.1 % (11.6-16.5) 05/26/25 10:02 Plt Count 153 X10^3/uL (150.0-450.0) 05/26/25 10:02 MPV 9.3 fL (7.4-11.0) 05/26/25 10:02 Neut % (Auto) 68.6 % (42.0-75.0) 05/26/25 10:02 Lymph % (Auto) 22.7 % (21.0-51.0) 05/26/25 10:02 [place] % (Auto) 5.2 % (0.0-13.0) 05/26/25 10:02 Eos % (Auto) 2.6 % (0.9-2.9) 05/26/25 10:02 Baso % (Auto) 0.9 % (0.2-1.0) 05/26/25 10:02 Neut # (Auto) 4.9 x10^3/uL (2.2-4.8) H 05/26/25 10:02 Lymph # (Auto) 1.6 X10^3/uL (1.3-2.9) 05/26/25 10:02 [place] # (Auto) 0.4 x10^3/uL (0.3-0.8) 05/26/25 10:02 Eos # (Auto) 0.2 x10^3/uL (0.0-0.2) 05/26/25 10:02 Baso # (Auto) 0.1 X10^3/uL (0.0-0.1) 05/26/25 10:02 Absolute Nucleated RBC 0.1 /100WBC 05/26/25 10:02 PT 14.8 SECONDS (11.8-14.3) 05/26/25 10:02 INR Target Range - 05/26/25 10:02 INR 1.15 (0.8-1.3) 05/26/25 10:02 APTT 30.3 SECONDS (22.9-36.5) 05/26/25 10:02 PTT Comment - 05/26/25 10:02 Sodium 144 mmol/L (136-145) 05/26/25 10:02 Corrected Sodium 145 mmol/L (136-145) 05/26/25 10:02 Potassium 3.9 mmol/L (3.5-5.1) 05/26/25 10:02 Chloride 108 mmol/L (98-107) H 05/26/25 10:02 Carbon Dioxide 27.1 mmol/L (21-32) 05/26/25 10:02 BUN 29 mg/dL (7-18) H 05/26/25 10:02 Creatinine 1.52 mg/dL (0.70-1.30) H 05/26/25 10:02 Est GFR (MDRD) Af Amer 60 (>60) 05/26/25 10:02 Est GFR (MDRD) Non-Af 49 (>60) L 05/26/25 10:02 Glucose 133 mg/dL (65-99) H 05/26/25 10:02 Calcium 8.5 mg/dL (8.5-10.1) 05/26/25 10:02 Corrected Calcium 9.2 mg/dL (8.5-10.1) 05/26/25 10:02 Total Bilirubin 1.10 mg/dL (0.2-1.0) H 05/26/25 10:02 AST 37 Units/L (15-37) 05/26/25 10:02 ALT 28 Units/L (12-78) 05/26/25 10:02 Alkaline Phosphatase 91 Units/L (46-116) 05/26/25 10:02 Creatine Kinase 74 Units/L (39-308) 05/26/25 10:02 Troponin I High Sens 73.4 ng/L (4.0-60.0) H* 05/26/25 12:08 B-Natriuretic Peptide 4790 pg/mL (0-79) H 05/26/25 10:02 Total Protein 6.7 g/dL (6.4-8.2) 05/26/25 10:02 Albumin 3.1 g/dL (3.4-5.0) L 05/26/25 10:02 Globulin 3.6 g/dL (2.5-4.5) 05/26/25 10:02 Albumin/Globulin Ratio 0.9 Ratio (1.1-2.1) L 05/26/25 10:02 Opioid Opioid Risk Tool Age (Trey box if 16-45): No History of Preadolescent Sexual Abuse: No Total: 0 Total Score Risk Category: Low Risk Copyright: [facility] predicting aberrant behaviors Discharge Plan Diagnosis Discharge Problem: CHF (congestive heart failure) Chest pain Qualifiers: Chest pain type: precordial pain Qualified Code(s): R07.2 - Precordial pain Discharge Plan Patient Disposition: 09 ADMITTED INPATIENT Condition: Stable Prescriptions: No Action dapagliflozin propanediol [Farxiga] 10 mg tablet 10 mg PO QDAY furosemide [Lasix] 20 mg tablet 20 mg PO QAM Qty: 60 0RF Rx Instructions: 1 to 2 tablets q am as directed for chf carvedilol 6.25 mg tablet 6.25 mg PO BID Health Concerns: Post Hospitalization: new medications and changes needed to prevent readmission or further decline. Pt educated and given instructions on all concerns. Plan of Treatment: Continue with present treatment and follow up plan. Pt is to keep follow up appointment as instructed and take medications as ordered. Follow ups/Referrals Follow ups/Referrals: JP BATRES [Primary Care Provider, MEDICAL] - 3 days Instructions Print Language: [place]
[2025-05-26] MEDS: ASPIRIN PO ONE (10:08)
[2025-05-26 10:10] LABS: MEAN PLATELET VOLUME 9.3 fL (7.4-11.0); RED CELL DISTRIBUTION WIDTH 14.1 % (11.6-16.5)
--- NOTE | 2025-05-26 10:14 | EKG ---
Test Reason : chest pain, sob Blood Pressure : */* mmHG Vent. Rate : 75 BPM Atrial Rate : 75 BPM P-R Int : 176 ms QRS Dur : 120 ms QT Int : 412 ms P-R-T Axes : 72 70 247 degrees QTc Int : 460 ms Sinus rhythm with frequent premature ventricular complexes Possible Left atrial enlargement Left ventricular hypertrophy with QRS widening and repolarization abnormality ( [place] product ) Cannot rule out Septal infarct , age undetermined Abnormal ECG When compared with ECG of 25-DEC-2024 17:25, premature ventricular complexes are now present Left bundle branch block is no longer present Minimal criteria for Septal infarct are now present Confirmed by Rome Tristan MD ([id number]) on 05/27/2025 1:20:16 PM Referred By: Confirmed By: Rome Tristan MD
[2025-05-26 10:18] LABS: INR 1.15 (0.8-1.3)
[2025-05-26 10:33] LABS: COR CA(FOR HYPOALB) 9.2 mg/dL (8.5-10.1); COR NA(FOR HYPERGLY) 145.0 mmol/L (136-145); CREATININE 1.52 mg/dL (0.70-1.30); eGFR NON BLACK RACES 49.0 (>60)
[2025-05-26] MEDS: LASIX IVP ONE (10:37)
--- NOTE | 2025-05-26 11:06 | RAD ---
EXAM: CHEST, 1 VIEW HISTORY: chest pain; SOB; COMPARISON: 12/25/2024 FINDINGS: The cardiomediastinal silhouette is stable. Chronic appearing interstitial changes in the lungs. No acute airspace disease. No pneumothorax or effusion. No acute osseous abnormality. IMPRESSION: No acute cardiopulmonary disease. THIS IS AN ELECTRONICALLY VERIFIED FINAL REPORT 05/26/2025 11:03 AM - Electronically signed by Magdy Amanda MD
[2025-05-26] MEDS ORDERED: NORCO 5/325 MG TAB PO PRN (13:16)
[2025-05-26] MEDS ORDERED: ULTRAM PO PRN (13:16)
[2025-05-26] MEDS ORDERED: TYLENOL 325 MG TAB PO PRN (13:16)
[2025-05-26 13:59] VITALS: BMI 24.0
[2025-05-26] MEDS ORDERED: CONSULT PHARMACY - POTASSIUM & MAGNESIUM XX SCH (14:00)
[2025-05-26] MEDS: ENTRESTO 49/51 MG TABLET PO SCH (20:46)
[2025-05-26] MEDS: RESTORIL CAP 15 MG PO PRN (20:46)
[2025-05-26] MEDS: COREG TAB 6.25 MG PO SCH (20:46)
[2025-05-27] MEDS: LASIX ONE (04:37)
[2025-05-27] MEDS: ASPIRIN ONE (04:37)
[2025-05-27 06:19] LABS: MEAN PLATELET VOLUME 9.8 fL (7.4-11.0); RED CELL DISTRIBUTION WIDTH 13.8 % (11.6-16.5)
[2025-05-27 06:22] LABS: COR CA(FOR HYPOALB) 9.3 mg/dL (8.5-10.1); CREATININE 1.34 mg/dL (0.70-1.30); eGFR NON BLACK RACES 57 (>60)
[2025-05-27] MEDS ORDERED: CONSULT PHARMACY - POTASSIUM & MAGNESIUM XX SCH ×2 (07:00→08:00)
[2025-05-27] MEDS: MAG-OX TAB PO SCH (09:00)
[2025-05-27] MEDS ORDERED: PATIENT'S HOME MEDICATION (Dapagliflozin Propanediol [Farxiga] 10 mg tablet) PO SCH (09:00)
[2025-05-27] MEDS: K-DUR TAB 20 MEQ PO SCH ×2 (09:01→09:12)
[2025-05-27] MEDS: LASIX IVP SCH (09:02)
[2025-05-27] MEDS ORDERED: FARXIGA PO ONE (09:36)
[2025-05-27] MEDS: FARXIGA PO SCH ×2 (11:51→11:57)
[2025-05-27] MEDS: COLACE CAP 100 MG PO SCH (20:41)
[2025-05-28 04:25] VITALS: RESP 20
[2025-05-28 05:49] LABS: MEAN PLATELET VOLUME 9.5 fL (7.4-11.0); RED CELL DISTRIBUTION WIDTH 13.9 % (11.6-16.5)
[2025-05-28 06:00] LABS: COR CA(FOR HYPOALB) 9.1 mg/dL (8.5-10.1); CREATININE 1.44 mg/dL (0.70-1.30); eGFR NON BLACK RACES 53 (>60)
--- NOTE | 2025-05-28 06:47 | RAD ---
EXAM: CHEST, PA/LAT ADULT HISTORY: chf; chf COMPARISON: 05/26/2025 FINDINGS: The lungs are clear. No pneumothorax or effusion. Peripheral nodular opacities are present in the lateral lower left chest and may represent old rib fractures. I believe I can also see a similar abnormality on the chest radiograph from 12/25/2024. Cardiomegaly is present. The aorta is tortuous; this can be seen with aging, hypertension, or atherosclerosis. The bones are unremarkable. IMPRESSION: 1. No significant abnormality THIS IS AN ELECTRONICALLY VERIFIED FINAL REPORT 05/28/2025 6:44 AM - Electronically signed by Andrae Presley MD
[2025-05-28 08:31] VITALS: BP 137/79; PULSE 71; TEMP 98.1; O2SAT 97
[2025-05-28] MEDS: MILK OF MAGNESIA PO PRN (09:38)
[2025-05-28] MEDS: K-DUR TAB 20 MEQ PO SCH (09:38)
[2025-05-28] MEDS ORDERED: CONSULT PHARMACY - POTASSIUM & MAGNESIUM XX SCH (10:00)
== END 2025-05-28 11:20 | disposition home or self-care (01) ==
LOC: ER 09:47 → MED/SURG 09:47
PROVIDERS: ADMIT Obstetrics & Gynecology Obstetrics; ATTEND Obstetrics & Gynecology Obstetrics
DX: E83.51 Hypocalcemia; F15.90 Other stimulant use, unspecified, uncomplicated; I50.9 Heart failure, unspecified; R79.89 Other specified abnormal findings of blood chemistry; R94.4 Abnormal results of kidney function studies; F12.90 Cannabis use, unspecified, uncomplicated; I25.10 Atherosclerotic heart disease of native coronary artery without angina pectoris; I25.2 Old myocardial infarction; D64.89 Other specified anemias; I11.0 Hypertensive heart disease with heart failure; F14.90 Cocaine use, unspecified, uncomplicated; E87.0 Hyperosmolality and hypernatremia; R06.02 Shortness of breath; E11.65 Type 2 diabetes mellitus with hyperglycemia; E87.6 Hypokalemia; R94.31 Abnormal electrocardiogram [ECG] [EKG]; R07.89 Other chest pain; E80.6 Other disorders of bilirubin metabolism